=== PATIENT | male | born 1970 | race Hispanic/Latino ===

== ENCOUNTER 2018-03-16 07:57 | Inpatient (IN) | payer OTHER ==
[2018-03-16] MEDS ORDERED: Morphine 4 MG/ML VIAL ONE (08:17)
[2018-03-16 08:23] LABS: #Basophils 0.1 thou/uL (0.0-0.2); #Eosinphils 0.9 thou/uL (0.0-0.7); #Lymphocytes 2.6 thou/uL (1.20-3.40); #Monocytes 0.7 thou/uL (0.11-0.59); #Neutrophils 8.1 thou/uL (1.40-6.50); %Basophils 0.6 % (0.0-1.0); %Eosinophils 7.3 % (0.0-10.0); %Lymphocytes 20.8 % (21.0-51.0); %Monocytes 5.9 % (0.0-10.0); %Neutrophils 65.4 % (42.0-75.0); Hemoglobin 11.6 g/dL (14.0-18.0); Mean Corpuscular HGB CONC 32.2 g/dL (32.0-36.0); Mean Corpuscular Hemoglobin 25.4 pg (27.0-31.0); Mean Platelet Volume 6.6 fL (7.4-10.4); Platelet Count 442 thou/uL (130-400); RBC Distribution Width 13.9 % (11.5-14.5); Red Blood Cell (RBC) Count 4.56 mill/uL (4.70-6.10); White Blood Cell (WBC) Count 12.3 thou/uL (4.8-10.8)
[2018-03-16 08:45] LABS: ALT (SGPT) 27 U/L (8-55); AST (SGOT) 26 U/L (5-34); Alkaline Phosphatase 79 U/L (40-150); Anion Gap 15 mmol/L (10-20); BUN (Urea Nitrogen) 17 mg/dL (8.9-20.6); Bilirubin, Total 0.3 mg/dL (0.2-1.2); CK (CPK) 382 U/L (30-200); Calc. Creatinine Clearance 0 mL/min (70-130); Calcium 9.3 mg/dL (7.8-10.44); Carbon Dioxide 25 mmol/L (22-29); Chloride 102 mmol/L (98-107); Estimated GFR-MDRD 77; Glucose 161 mg/dL (70-105); Lipase 22 U/L (8-78); Potassium 3.9 mmol/L (3.5-5.1); Sodium 138 mmol/L (136-145)
[2018-03-16 08:47] LABS: CKMB 4.7 ng/mL (0-6.6); Troponin I Less than 0.010 ng/mL (< 0.028)
[2018-03-16] MEDS ORDERED: ISOVUE-370 76%-LOCM 1 ML ONE (09:40)
[2018-03-16] MEDS ORDERED: Sodium Chloride 0.9% 100 ML ONE (09:41)
[2018-03-16] MEDS ORDERED: cefTRIAXone\\ROCEPHIN 2 GM VIAL ONE (09:41)
--- NOTE | 2018-03-16 10:14 | RAD ---
SINGLE VIEW CHEST: Date: 03/16/18 COMPARISON: None. HISTORY: Left-sided chest pain and difficulty breathing. FINDINGS: Single view of the chest shows a normal sized cardiomediastinal silhouette. There is no evidence of c onsolidation, mass, or pleural effusion. The bones are unremarkable. IMPRESSION: No evidence of acute cardiopulmonary disease. POS: [facility]
[2018-03-16] MEDS ORDERED: Azithromycin 500 MG VIAL ONE (10:42)
--- NOTE | 2018-03-16 10:51 | CT ---
CONTRAST ENHANCED CTA CHEST: Date: 03/16/18 HISTORY: 47-year-old male with history of chest pain, difficulty breathing. TECHNIQUE: Contrast enhanced CTA of the chest is performed. 2D and 3D reconstructed images performed on an [employer] 3D workstation. FINDINGS: CTA chest demonstrates no evidence of filling defects seen in the pulmonary arteries to suggest pulmo nary emboli. The aortic arch is unremarkable. A small left-sided pleural effusion is seen. There is a cavitary lesion in the left lower lobe measuring 3.2 x 4.3 cm. This may represent a cavita km left lower lobe mass versus necrotic area of pneumonia. Follow-up films to resolution recommended . Correlate with clinical exam. Small hiatal hernia is also present. IMPRESSION: Cavitating lesion left lower lobe with small left-sided pleural effusion. POS: [facility]
[2018-03-16] MEDS ORDERED: Nitroglycerin 0.4 MG TAB (25 Tab Bottle) PO PRN (11:34)
[2018-03-16] MEDS ORDERED: Ondansetron HCl/PF 4 MG/2 ML Vial IVP PRN (11:34)
[2018-03-16] MEDS ORDERED: Ondansetron ODT 4 MG TAB PO PRN (11:34)
[2018-03-16] MEDS ORDERED: Senokot 8.6 MG TAB PO PRN (11:34)
[2018-03-16] MEDS ORDERED: hydrALAZINE 20 MG/ML VIAL SLOW IVP PRN ×2 (11:39→12:01)
[2018-03-16 11:42] LABS: Troponin I Less than 0.010 ng/mL (< 0.028)
[2018-03-16] MEDS ORDERED: Vancomycin HCl 1 GM in Premix Bag 1 BAG IVPB SCH (11:45)
[2018-03-16] MEDS ORDERED: Dextrose 50% Abboject 50 ML SYRINGE SLOW IVP PRN (11:58)
[2018-03-16] MEDS ORDERED: Dextrose 5% in Water 1,000 ML IV PRN (11:58)
--- NOTE | 2018-03-16 12:48 | HP ---
DATE OF ADMISSION: 03/16/2018 PRIMARY CARE PHYSICIAN: Dr. Shahab Giles in [place]. CHIEF COMPLAINT: Chest discomfort this a.m. HISTORY OF PRESENT ILLNESS: Patient is a 47-year-old male with diabetes mellitus type 2, hypertension, hyperlipidemia, and obesity, who presented to the emergency room with sudden onset of left-sided chest pain along with difficulty breathing that started this morning. He was driving to [place] from [place]. The chest discomfort was sharp, worse on deep breathing and moderate to severe in intensity. He was diaphoretic; however, denies any nausea, vomiting, lightheadedness, dizziness, syncope, or palpitations. He has a dry cough on and off over the last 4 weeks. He denies any fever, chills, night sweats or recent travel. In the emergency room, initial vital signs showed temperature 98.1, respirations 26, pulse rate of 111 with a blood pressure 152/109 with O2 saturation 97% on room air. His WBC count was 12.3 with normal neutrophils. Troponins was negative. Chest x-ray was negative for infiltrate. CT angiogram of the chest showed small left-sided pleural effusion with a cavitary lesion in the left lower lobe measuring 3.2 x 4.3 cm. He received ceftriaxone, azithromycin, morphine with IV fluids in the emergency room after blood cultures. PAST MEDICAL HISTORY: 1. Hypertension. 2. Diabetes mellitus type 2. 3. Hyperlipidemia. PAST SURGICAL HISTORY: Reviewed with the patient and none. ALLERGIES: No known drug allergies. CURRENT HOME MEDICATIONS: Metformin, lovastatin, lisinopril, hydrochlorothiazide, glimepiride, and pioglitazone. Exact dosages to be confirmed. SOCIAL HISTORY: Patient denies any history of smoking, alcohol or drug use. He currently lives at home with his family. He has been in [place] in . He has also traveled to [place]. He denies any travel to [place] or [place]. FAMILY HISTORY: Positive for diabetes. Grandmother on mother's side with breast cancer. Grandmother on father's side with throat cancer. She was a smoker as well. REVIEW OF SYSTEMS: The following complete review of systems was negative, unless otherwise mentioned in the HPI or below: Constitutional: Weight loss or gain, ability to conduct usual activities. Skin: Rash, itching. Eyes: Double vision, pain. ENT/Mouth: Nose bleeding, neck stiffness, pain, tenderness. Cardiovascular: Palpitations, dyspnea on exertion, orthopnea. Respiratory: Shortness of breath, wheezing, cough, hemoptysis, fever or night sweats. Gastrointestinal: Poor appetite, abdominal pain, heartburn, nausea, vomiting, constipation, or diarrhea. Genitourinary: Urgency, frequency, dysuria, nocturia. Musculoskeletal: Pain, swelling. Neurologic/Psychiatric: Anxiety, depression. Allergy/Immunologic: Skin rash, bleeding tendency. PHYSICAL EXAMINATION: VITAL SIGNS: As discussed above. GENERAL: A 47-year-old male in no apparent distress. Pain control with morphine. HEENT: Head is atraumatic, normocephalic. Sclerae are anicteric. Moist mucous membrane, no oral lesion. NECK: Supple, no JVD appreciated. No carotid bruit. LUNGS: Showed scattered rales on the left base without significant wheezing, rhonchi, or accessory muscle use. HEART: S1 and S2 present. Tachycardic, no murmur, rubs, or gallops appreciated. ABDOMEN: Soft, obese, bowel sounds present. EXTREMITIES: No edema or calf tenderness. NEUROLOGIC: Grossly nonfocal, moves all four extremities. PSYCHIATRY: Alert, awake, oriented x3. SKIN: Warm and dry. LYMPH NODES: No palpable lymph nodes in the neck. PERIPHERAL VASCULAR: Radial pulses palpable bilaterally. MUSCULOSKELETAL: No joint swelling or tenderness. LABORATORY AND X-RAY FINDINGS: As discussed above. Hemoglobin 11.6, hematocrit 36, BUN 17, creatinine 1.04. Troponins x2 have been negative. CRP was 3.69. Lactic acid was 1.6. CT angiogram of the chest by my review as discussed above. Chest x-ray by my review as discussed above. EKG by my review showed sinus tachycardia without significant ST-T wave changes. IMPRESSION: 1. Atypical chest pain, which is pleuritic in nature. Probably secondary to necrotizing pneumonia versus lung mass. Malignancy is also a possibility. 2. Diabetes mellitus type 2. 3. Hypertension. 4. Hyperlipidemia. 5. Elevated inflammatory markers. 6. Chronic kidney disease stage 2. 7. Thrombocytosis, probably secondary to #1. 8. Anemia, probably chronic. PLAN: The patient will be monitored on the telemetry unit due to chest discomfort. We will get serial troponins. Echocardiogram will be done. We will start him on vancomycin and meropenem. We will add low dose aspirin. Insulin sliding scale. We will resume home medications once confirmed. We will consult Pulmonary, Dr. Pearce. We will start him on diabetic diet. Plan of care was discussed with the patient in detail. He stated understanding. AFSANEHD
[2018-03-16] MEDS ORDERED: Meropenem 1 GM in Sodium Chloride 0.9% 100 ML IVPB SCH (13:00)
[2018-03-16] MEDS ORDERED: Vancomycin HCl 1.5 GM in Sodium Chloride 0.9% 250 ML 300 ML IVPB SCH (13:00)
[2018-03-16 14:28] VITALS: BMI 40.6
[2018-03-16 14:35] LABS: Troponin I Less than 0.010 ng/mL (< 0.028)
[2018-03-16] MEDS: Sodium Chloride 0.9% 1,000 ML IV SCH (14:45)
[2018-03-16] MEDS: Ketorolac Tromethamine 30 MG/ML VIAL IVP PRN ×2 (15:56→21:43)
[2018-03-16] MEDS: Acetaminophen 325 MG TAB PO PRN (16:02)
[2018-03-16] MEDS: HYDROcodone/Acetaminophen 5/325 mg Tablet PO PRN (19:41)
[2018-03-16] MEDS: Docusate 100 MG CAP PO SCH (19:55)
[2018-03-16] MEDS: Lisinopril 10 MG TAB PO SCH (19:55)
[2018-03-16] MEDS: Famotidine 20 MG TAB PO SCH (19:56)
--- NOTE | 2018-03-16 20:51 | CON ---
DATE OF CONSULTATION: 03/16/2018 SERVICE: Pulmonary Medicine. REASON FOR CONSULTATION: Abnormal CT finding. HISTORY OF PRESENT ILLNESS: The patient is a 47-year-old white male. He was driving his daughter from [place] to [place]. He dropped her off because she is starting as a student in [employer]. He stayed there last night. This morning, he was going to drive from [place] to [place]. When he was on the road, he had an onset of abrupt sharp pleuritic chest discomfort in the left chest wall. It was severe enough that he saw emergency services immediately. He went to the Emergency Department at [place]. He underwent a CT PE protocol. He is negative for PE, but did demonstrate an infiltrate. He started on some antibiotics. He continues to have pleuritic chest discomfort. He is worse in the supine position. He denies any current fevers, chills, nausea, vomiting or shortness of breath. He did not have any hot, red, swollen joints, rashes, or arthralgias. He denies having any hemoptysis, recent weight changes. He has been coughing on and off for the past 2 weeks. That being said, he did not think much of it. He never felt sick this entire period of time until the onset of that difficult pain. PAST MEDICAL HISTORY: 1. Type 2 diabetes mellitus. 2. Hypertension. 3. Dyslipidemia. PAST SURGICAL HISTORY: None. ALLERGIES: No known drug allergies. MEDICATIONS: List of his inpatient medications were reviewed. No specific updates were made at this time. SOCIAL HISTORY: Negative for alcohol, tobacco or illicit drug use. He has no exposure to chemicals, dust asbestos or tuberculosis. FAMILY HISTORY: Noncontributory. REVIEW OF SYSTEMS: General, head, ears, eyes, nose, throat, cardiovascular, respiratory, GI, , musculoskeletal, neurologic, and skin is negative except as mentioned in the HPI. PHYSICAL EXAMINATION: VITAL SIGNS: Afebrile currently. His T-max is 102.2. Pulse 123, blood pressure 132/70, respirations 18, saturation 93% on room air. GENERAL: The patient is awake, alert, no apparent distress. LUNGS: Decent air entry bilaterally. There is no prolonged expiratory phase. He has asymmetric crackles on the left. HEART: Normal rate, regular. ABDOMEN: Soft, nontender, nondistended. Bowel sounds are positive. MUSCULOSKELETAL: No cyanosis or clubbing. There is no pitting in the bilateral lower extremities. NEUROLOGIC: Grossly nonfocal. LABORATORY DATA: WBC 12.3, hemoglobin 11.6, platelets 442,000. Lactate 1.6, glucose 219. CRP is elevated. Cardiac enzymes are negative x3. Basic metabolic profile and liver function studies are essentially unremarkable except for CK that is slightly elevated at 382. IMAGIN. Chest x-ray demonstrates low lung volumes accentuate interstitial markings. I honestly can see any acute cardiopulmonary process. In retrospect, there may be an infiltrate just on top of the dome of the left diaphragm. 2. CT of the chest demonstrates no evidence of acute pulmonary embolism. In the superior segment of the left lower lobe, there is a dense infiltrate that takes on a cavitary appearance. There is also scattered tree-in-bud opacifications throughout the entirety of the superior segment of the left lower lobe. ASSESSMENT: 1. Community-acquired pneumonia, suspected. 2. Obstructive sleep apnea, suspected. 3. Abnormal CT of the chest, DISCUSSION AND PLAN: My suspicion is that we are dealing with his straightforward community-acquired pneumonia. As such, I will put him on a 2- week course of Levaquin. I am going to extend the course because there may be an early abscess underneath this lesion. It will be imperative for him to have a repeat CT of the chest in roughly 6 weeks to verify the infiltrate resolves. When he leaves this hospital, he will need to leave with a copy of the CT from this hospital stay. He understands that we have not excluded the possibility of an underlying growth and/or cancer process. I will repeat a chest x-ray tomorrow morning. If the pleural effusion is not significantly changed, and his white blood cell count and fever profile have dramatically improved, he can be considered for discharge from the hospital. If all of my criteria are not met, he will need to stay for an additional day or two. After 4-5 days of the Levaquin, we can certainly finish off a course of antibiotics with Augmentin if it would be easier for the patient. Pulmonary Critical Care will continue to follow while he remains in this location. 70 minutes have been devoted to this patient in various activities. I personally reviewed all imaging studies and laboratory data noted within this document. For fifty percent of this time, I was interacting with the patient at the bedside or coordinating care with the care team. For the remainder of the time I was immediately available to the patient in the hospital unit. KINS[place]Y
[2018-03-17] MEDS: Ketorolac Tromethamine 30 MG/ML VIAL IVP PRN (03:56)
[2018-03-17 06:10] LABS: Anion Gap 15 mmol/L (10-20); BUN (Urea Nitrogen) 16 mg/dL (8.9-20.6); Calc. Creatinine Clearance 238 mL/min (70-130); Calcium 8.5 mg/dL (7.8-10.44); Carbon Dioxide 20 mmol/L (22-29); Cardiac Risk 3.1 (Less than 4.5); Chloride 102 mmol/L (98-107); Cholesterol 93 mg/dl (< 200 Desired); Estimated GFR-MDRD Greater than 90; Glucose 167 mg/dL (70-105); HDL Cholesterol 30 mg/dL (>60 Neg Risk); LDL Cholesterol, Calculated 53 mg/dL; Magnesium 1.2 mg/dL (1.6-2.6); Potassium 3.9 mmol/L (3.5-5.1); Sodium 133 mmol/L (136-145); Triglycerides 49 mg/dL (Less than 150)
[2018-03-17 06:53] LABS: Band 11 % (5-11); Eosinophils 2 % (0-10); Hemoglobin 10.6 g/dL (14.0-18.0); Lymphocytes 8 % (21-51); MDiff Complete? YES; Mean Corpuscular Hemoglobin 25.8 pg (27.0-31.0); Mean Corpuscular Volume 78.1 fL (78.0-98.0); Mean Platelet Volume 6.8 fL (7.4-10.4); Monocytes 6 % (0-10); Neutrophil 73 % (42-75); Platelet Count 320 thou/uL (130-400); Red Blood Cell (RBC) Count 4.12 mill/uL (4.70-6.10)
[2018-03-17] MEDS ORDERED: Magnesium Sulfate 4 GM in Sodium Chloride 0.9% 250 ML 250 ML IVPB SCH (08:00)
[2018-03-17] MEDS ORDERED: Aspirin 325 MG TAB PO SCH (09:00)
[2018-03-17] MEDS: Docusate 100 MG CAP PO SCH ×2 (09:09→20:46)
[2018-03-17] MEDS: Famotidine 20 MG TAB PO SCH (09:09)
[2018-03-17] MEDS: Lisinopril 10 MG TAB PO SCH ×2 (09:09→20:46)
[2018-03-17] MEDS: Aspirin 81 mg Enteric Coated Tablet PO SCH (09:10)
[2018-03-17] MEDS: HYDROcodone/Acetaminophen 5/325 mg Tablet PO PRN ×2 (09:51→14:44)
--- NOTE | 2018-03-17 12:18 | RAD ---
2 VIEW CHEST: Date: 03/17/18 HISTORY: Chest pain. FINDINGS: PA and lateral views of chest obtained. Comparison made to chest CT from 03/16/18. Two views of the chest demonstrate interval increasing left-sided pleural effusion. The area of necro sis and consolidation of the left lung base appears to have increased in size. The right lung remains well aerated. IMPRESSION: Area of increasing opacification in the left lower lobe with increasing left-sided pleural effusion. POS: [facility]
[2018-03-17] MEDS: Sodium Chloride 0.9% 1,000 ML IV SCH (14:46)
[2018-03-17 15:23] LABS: Legionella Urinary Ag Negative (Negative); Strep pneumo Urine Ag NEGATIVE (NEGATIVE)
[2018-03-17] MEDS ORDERED: Lidocaine 1% (PF) 30 ML VIAL ONE (15:51)
[2018-03-17 16:48] LABS: BF Color Yellow; Body Fluid Source THORACENTESIS FLD; Clarity Cloudy/Turbid (Clear)
[2018-03-17 16:49] LABS: RBC Count-Automated 30000 /cumm; Tube # EDTA; WBC/NonHematic-Auto 16400 /cumm
[2018-03-17 16:56] LABS: Pleural Fluid, Protein 4.8 g/dL
[2018-03-17 17:16] LABS: BF Segmented Neutrophils 86 %; Cell Count Non Hematic 6 %; Lymphocytes 8 %
--- NOTE | 2018-03-17 17:31 | RAD ---
CHEST TWO VIEWS: History: Thoracentesis. Comparison: Earlier exam same date. FINDINGS: Cardiac silhouette is unremarkable. Pulmonary vasculature remains engorged. Left basilar infiltrate a nd probable pleural fluid are again demonstrated. No evidence of pneumothorax. visitor service assistant leads overlie the chest. IMPRESSION: Stable radiographic appearance of the chest. No evidence of pneumothorax. POS: [facility]
[2018-03-17] MEDS ORDERED: Vancomycin HCl 1.5 GM in Sodium Chloride 0.9% 250 ML 300 ML IVPB SCH ×2 (18:00→20:00)
[2018-03-17] MEDS: Insulin Regular 300 UNITS/3 ML VIAL SC PRN (18:12)
[2018-03-17] MEDS: Piperacillin/Tazobactam 3.375 GM in Sodium Chloride 0.9% 100 ML IVPB SCH ×2 (18:12→23:18)
--- NOTE | 2018-03-17 18:15 | PRG ---
DATE OF SERVICE: 03/17/2018 SERVICE: Pulmonary Medicine. INTERVAL HISTORY: The patient is doing poorly from a respiratory standpoint. He is having increasin g pleuritic chest discomfort. Whenever he gets up and moves around, he has pleuritic chest pain. It seems improve once he settles down for a period of time. He is having a hard time lying down. Othe rwise, there has been no interval change to his condition. PHYSICAL EXAMINATION: VITAL SIGNS: Afebrile, pulse 112, blood pressure 126/79, respirations 20, saturation 96% on room air . GENERAL: The patient is awake and alert, in no apparent distress. LUNGS: Decent air entry on the right. There is decreased air entry at the left base. There is rhon chi and crackles present. No wheezing. HEART: Normal rate, regular. ABDOMEN: Soft, nontender, nondistended. Bowel sounds are positive. MUSCULOSKELETAL: No cyanosis or clubbing. No pitting in the bilateral lower extremities. NEUROLOGIC: Grossly nonfocal. LABORATORY DATA: WBC 17.0, hemoglobin 10.6, platelets 320,000. Basic metabolic profile is unremarka ble otherwise. Magnesium 1.2. Blood sugar ranges from 170-266. Strep and legionella urine antigens are unremarkable. Blood cultures x2 are negative. IMAGING: Chest x-ray demonstrates increasing pleural effusion and infiltrate in the left base. ASSESSMENT: 1. Community-acquired pneumonia. 2. Pleural effusion. 3. Obstructive sleep apnea, suspected. 4. Type 2 diabetes mellitus. DISCUSSION AND PLAN: I will replace the magnesium. We are going to proceed with a thoracentesis pradip t can define the characteristics of this increasing fluid collection. My suspicion is an early infec tious fluid. I am going to add Zosyn in order to broaden out anaerobic coverage. Pulmonary Critical Care will continue to follow along. The patient will require staying in the hospital for at least i n another 2 midnights. Assuming he does not require surgical procedure in the coming days.
[2018-03-17] MEDS: Vancomycin HCl 1.5 GM in Sodium Chloride 0.9% 250 ML 300 ML IVPB SCH (20:42)
[2018-03-17] MEDS: Simvastatin 5 MG TAB PO SCH (20:46)
--- NOTE | 2018-03-17 23:00 | PDOC.PN ---
- Subjective Encounter Start Date: 03/17/18 Encounter Start Time: 18:00 Patient seen and examined for Pneumonia/Sepsis. Pleuritic pain +. No CP. s/p thoracentesis. No overnight events - Objective Resuscitation Status: Resuscitation Status FULL:Full Resuscitation MAR Reviewed: Yes Vital Signs & Weight: Vital Signs (12 hours) Temp Pulse Resp BP BP Pulse Ox 03/17/18 20:46 128/78 03/17/18 20:20 98 F 135 H 18 128/78 93 L 03/17/18 16:40 98.6 F 121 H 20 134/66 91 L Weight Weight 333 lb 6.4 oz I&O: 03/16/18 03/17/18 03/18/18 06:59 06:59 06:59 Intake Total 705 Output Total 100 Balance 605 Result Diagrams: 03/18/18 04:41 03/18/18 04:41 Additional Labs: Accuchecks 03/17/18 03/17/18 03/17/18 20:56 16:53 10:57 POC Glucose 185 H 231 H 173 H 03/17/18 05:35 POC Glucose 170 H EKG Reviewed by me: Yes (Tele SR) Phys Exam - Physical Examination Constitutional: NAD Neck: no JVD Respiratory: no wheezing, no rhonchi Rt sided rales Cardiovascular: RRR, no rub Gastrointestinal: soft, non-tender, positive bowel sounds Musculoskeletal: no edema Neurological: moves all 4 limbs Dx/Plan - Plan DVT proph w/SCDs IMPRESSION: 1. Sepsis for Pneumonia ?Pneumococcus with Parapneumonic effusion s/p thoracentesis 2. Pleuritic chest pain - trop neg, Echo - normal EF 2. Diabetes mellitus type 2. 3. Hypertension. 4. Hyperlipidemia. 5. Hypomagnesemia. 6. Chronic kidney disease stage 2. 7. Thrombocytosis, probably secondary to #1. 8. Anemia, probably chronic. PLAN: Cont IV Vancomycin/Levaquin/Zosyn Replace Magnesium Await Pleural fluid culture AM labs Cont to monitor AM labs Laboratory Tests 03/17/18 04:48 Magnesium 1.2 L Review of Systems - Review of Systems Constitutional: negative: fever, chills, sweats, weakness, malaise, other Gastrointestinal: negative: Nausea, Vomiting, Abdominal Pain, Diarrhea, Constipation, Melena, Hematochezia, Other - Medications/Allergies Allergies/Adverse Reactions: Allergies Allergy/AdvReac Type Severity Reaction Status Date / Time No Known Allergies Allergy Unverified 03/16/18 12:05 Medications: Current Medications Acetaminophen (Tylenol) 650 mg PO Q4H PRN PRN Reason: Headache/Fever or Pain Last Admin: 03/16/18 16:02 Dose: 650 mg Hydrocodone Bitart/Acetaminophen ([place] 5/325) 1 tab PO Q4H PRN PRN Reason: Moderate Pain (4-6) Last Admin: 03/17/18 14:44 Dose: 1 tab Aspirin (Ecotrin) 81 mg PO DAILY [facility] Last Admin: 03/17/18 09:10 Dose: 81 mg Dextrose/Water (Dextrose 50%) 25 gm SLOW IVP PRN PRN PRN Reason: Hypoglycemia Docusate Sodium (Colace) 100 mg PO BID [facility] Last Admin: 03/17/18 20:46 Dose: 100 mg Glimepiride (Amaryl) 1 mg [facility] Glucagon (Glucagon) 1 mg IM PRN PRN PRN Reason: Hypoglycemia Hydralazine HCl (Apresoline) 10 mg SLOW IVP Q4H PRN PRN Reason: SBP Greater Than 180 Sodium Chloride (Normal Saline 0.9%) 1,000 mls @ 50 mls/hr IV .Q20H [facility] Last Admin: 03/17/18 14:46 Dose: 1,000 mls Dextrose/Water (D5w) 1,000 mls @ 0 mls/hr IV .Q0M PRN PRN Reason: Hypoglycemia Levofloxacin 750 mg/ Device 150 mls @ 100 mls/hr IVPB Q24HR [facility] Last Admin: 03/17/18 14:44 Dose: 150 mls Piperacillin Sod/Tazobactam (Sod 3.375 gm/ Sodium Chloride) 100 mls @ 200 mls/ hr IVPB Q6HR [facility] Last Admin: 03/17/18 18:12 Dose: 100 mls Vancomycin HCl 1.5 gm/ Sodium (Chloride) 300 mls @ 200 mls/hr IVPB 0400,1200, 2000 [facility] Last Admin: 03/17/18 20:42 Dose: 300 mls Insulin Human Regular (Humulin R) 0 units SC .MILD SLIDING SCALE PRN PRN Reason: Mild Correctional Scale Last Admin: 03/17/18 18:12 Dose: 3 unit Ketorolac Tromethamine (Toradol) 15 mg IVP Q6H PRN PRN Reason: Severe Pain (7-10) Stop: 03/21/18 15:39 Last Admin: 03/17/18 03:56 Dose: 15 mg Lisinopril (Zestril) 10 mg PO BID [facility] Last Admin: 03/17/18 20:46 Dose: 10 mg Miscellaneous Medication (Pharmacy To Dose) 1 each IVPB PRN PRN PRN Reason: Pharmacy to dose Morphine Sulfate (Morphine) 2 mg SLOW IVP Q4H PRN PRN Reason: Pain Stop: 03/18/18 12:02 Last Admin: 03/17/18 20:15 Dose: 2 mg Nitroglycerin (Nitrostat) 0.4 mg PO Q5MIN PRN PRN Reason: Chest Pain Ondansetron HCl (Zofran Odt) 4 mg PO Q6H PRN PRN Reason: Nausea/Vomiting Ondansetron HCl (Zofran) 4 mg IVP Q6H PRN PRN Reason: Nausea/Vomiting Pantoprazole Sodium (Protonix) 40 mg PO DAILY [facility] Pioglitazone HCl (Actos) 15 mg PO DAILY [facility] Senna (Senokot) 2 tab PO HSPRN PRN PRN Reason: Constipation Simvastatin (Zocor) 10 mg PO HS [facility] Last Admin: 03/17/18 20:46 Dose: 10 mg Sodium Chloride (Flush - Normal Saline) 10 ml IVF Q12HR [facility] Last Admin: 03/17/18 20:21 Dose: 10 ml Sodium Chloride (Flush - Normal Saline) 10 ml IVF PRN PRN PRN Reason: Saline Flush
--- NOTE | 2018-03-17 23:40 | OP ---
DATE OF PROCEDURE: 03/17/2018 SERVICE: Pulmonary Medicine. PROCEDURE: Left-sided pleural drainage with catheter insertion under ultrasound guidance. CONSENT: The risks and benefits of the procedure were discussed with the patient immediately prior t o initiating. All questions were answered and alternative options explained. STAFF PHYSICIAN: Vin Pearce MD MEDICATIONS USED: Lidocaine 1% without epinephrine, total quantity 10 mL. PREOPERATIVE DIAGNOSES: 1. Community-acquired pneumonia. 2. Pleural effusion. POSTOPERATIVE DIAGNOSES: 1. Community-acquired pneumonia. 2. Pleural effusion. DESCRIPTION OF PROCEDURE: Timeout was performed by the procedure team and patient. The patient was positively identified using name and date of . The procedure site was marked. Vital sign monit oring was accomplished by noninvasive hemodynamic monitoring, pulse oximetry, and telemetry. In the seated position, the left posterior hemithorax was examined using ultrasound probe. The diaphragm an d pleural fluid were easily identified. The skin was prepped and draped in sterile fashion and anest hetized with 1% lidocaine without epinephrine. A finder needle was inserted in the pleural space wit h return of cloudy dayana pleural fluid. A pleural drainage catheter was then inserted in the same lo cation and total quantity of 800 mL of pleural fluid was withdrawn by syringe pump technique. [facility]. Evacuation of the fluid was terminated because the fluid stopped coming. At the end of the procedure, estimated pleural pressures, measured by manometry, was -16 cm of pleura l fluid. The intact catheter was withdrawn on exhalation and a sterile dressing was applied. The pa tient had stable vitals throughout the entire procedure. ESTIMATED BLOOD LOSS: Less than 1 mL. COMPLICATIONS: None.
[2018-03-18] MEDS: Ketorolac Tromethamine 30 MG/ML VIAL IVP PRN ×3 (02:08→18:01)
[2018-03-18] MEDS: Vancomycin HCl 1.5 GM in Sodium Chloride 0.9% 250 ML 300 ML IVPB SCH ×2 (04:11→13:17)
[2018-03-18 06:25] LABS: Anion Gap 14 mmol/L (10-20); BUN (Urea Nitrogen) 12 mg/dL (8.9-20.6); Calc. Creatinine Clearance 235 mL/min (70-130); Calcium 8.7 mg/dL (7.8-10.44); Carbon Dioxide 21 mmol/L (22-29); Chloride 102 mmol/L (98-107); Estimated GFR-MDRD Greater than 90; Glucose 194 mg/dL (70-105); Magnesium 1.7 mg/dL (1.6-2.6); Potassium 4.1 mmol/L (3.5-5.1); Sodium 133 mmol/L (136-145)
[2018-03-18 06:44] LABS: Hemoglobin 10.4 g/dL (14.0-18.0); Mean Corpuscular HGB CONC 32.4 g/dL (32.0-36.0); Mean Corpuscular Hemoglobin 25.8 pg (27.0-31.0); Mean Corpuscular Volume 79.6 fL (78.0-98.0); Mean Platelet Volume 7.4 fL (7.4-10.4); Platelet Count 316 thou/uL (130-400); RBC Distribution Width 14.2 % (11.5-14.5); Red Blood Cell (RBC) Count 4.05 mill/uL (4.70-6.10); White Blood Cell (WBC) Count 17.1 thou/uL (4.8-10.8)
[2018-03-18 07:01] LABS: Band 3 % (5-11); Eosinophils 1 % (0-10); Lymphocytes 5 % (21-51); MDiff Complete? YES; Monocytes 2 % (0-10); Neutrophil 89 % (42-75)
--- NOTE | 2018-03-18 09:16 | RAD ---
TWO VIEWS CHEST: HISTORY: Followup pleural effusion. FINDINGS: PA and lateral views of the chest were obtained on 03/18/18. Comparison is made to previous exam from 03/17/18. Two views chest demonstrate a moderate-size left-sided pleural effusion. Areas of airspace opacity remain in the left lung base. The degree of opacification of the left lung base is unchanged since the previous exam. Mild pulmonary vascular congestion is seen. No evidence of effusions seen. IMPRESSION: Left-sided pleural effusion and areas of left lower lobe consolidation. No other significant abnorma lity is seen. POS: [facility]
--- NOTE | 2018-03-18 11:09 | CT ---
NONCONTRAST ENHANCED CT CHEST: Date: 03/18/18 HISTORY: Pneumonia COMPARISON: Comparison made to CTA chest from 03/16/18. FINDINGS: A noncontrast enhanced CT of the chest demonstrates interval development of moderate size left-sided pleural effusion. There are extensive increasing consolidations seen in the majority of the left lowe r lobe. This has significantly decreased in extent when compared to the CTA from 2 days earlier. Some area of increased density also seen along the posterior aspect of the left upper lobe seen on image #20. This may represent small posterior left upper lobe area of pneumonia versus fluid in the major f issure, which is now trapped in this area. The rest of the lungs are unremarkable. IMPRESSION: Increasing left-sided pleural effusion with extensively increasing left lower lobe pneumonia. POS: [facility]
[2018-03-18] MEDS: Piperacillin/Tazobactam 3.375 GM in Sodium Chloride 0.9% 100 ML IVPB SCH ×4 (11:17→23:10)
[2018-03-18] MEDS: Pioglitazone HCl 15 MG TAB PO SCH (11:17)
[2018-03-18] MEDS: Lisinopril 10 MG TAB PO SCH ×2 (11:17→21:12)
[2018-03-18] MEDS: Aspirin 81 mg Enteric Coated Tablet PO SCH (11:18)
[2018-03-18] MEDS: Docusate 100 MG CAP PO SCH ×2 (11:18→21:12)
[2018-03-18] MEDS: Glimepiride 1 MG TAB PO SCH (11:31)
[2018-03-18] MEDS: Insulin Regular 300 UNITS/3 ML VIAL SC PRN (11:32)
[2018-03-18] MEDS: Sodium Chloride 0.9% 1,000 ML IV SCH ×2 (13:23→23:19)
[2018-03-18] MEDS: HYDROcodone/Acetaminophen 5/325 mg Tablet PO PRN ×2 (14:10→21:11)
--- NOTE | 2018-03-18 16:58 | PRG ---
DATE OF SERVICE: 03/18/2018 SERVICE: Pulmonary Medicine. INTERVAL HISTORY: The patient is doing a little bit better from a respiratory standpoint. He is having a little less pleuritic chest discomfort. That being said, clearly he had not turn a corner yet. He denies any nausea, vomiting, fevers or chills. Otherwise, there has been no interval change to his condition. His band count is dropping. His white blood cell count is also stable. OBJECTIVE: VITAL SIGNS: Afebrile currently. Pulse 113, blood pressure 126/68, respirations 18, saturation 95% on room air. GENERAL: The patient is awake and alert, no apparent distress. LUNGS: Decent air entry. The left base has crackles. Dullness to percussion is present. HEART: Tachycardic. Regular. ABDOMEN: Soft, nontender, nondistended. Bowel sounds are positive. MUSCULOSKELETAL: No cyanosis or clubbing. There is no pitting in the bilateral lower extremities. NEUROLOGIC: Grossly nonfocal. LABORATORY DATA: WBC 17.1 and stable, hemoglobin 10.4, platelets 316,000. Basic metabolic profile is essentially unremarkable. Magnesium is 1.7. Blood cultures x2, body fluid culture, AFB smear and culture are all negative to date. IMAGING: Chest x-ray from yesterday and today demonstrates possible pleural effusion, but truth be told, the infiltrate is a dense, I really cannot see it, well demarcated. CT of the chest demonstrates dense consolidation in the left lower lobe. There is a left-sided pleural effusion, which has recurred once again with areas that appeared to have some loculation versus abscess in the left lower lobe. ASSESSMENT: 1. Community-acquired pneumonia. 2. Pleural effusion, suspect complicated parapneumonic effusion. 3. Obstructive sleep apnea, suspected. 4. Type 2 diabetes mellitus. DISCUSSION AND PLAN: I will make the patient n.p.o. after midnight tonight just in case we need to send him for surgery over the next couple of days. This is either an uncomplicated parapneumonic effusion which will improve or complicated effusion that was set up into loculations and never get better. If he clears his sepsis profile, I can give him more time. If on the other hand, he does not a white blood cell count starts to trend upward, we will call Thoracic Surgery for definitive treatment of this pleural space. He needs to stay in the hospital. K[place]LEY
[2018-03-18 19:41] LABS: Vancomycin, Trough 22.6 ug/mL
[2018-03-18] MEDS: Vancomycin HCl 1.25 GM in Sodium Chloride 0.9% 250 ML 250 ML IVPB SCH (21:10)
[2018-03-18] MEDS: Simvastatin 5 MG TAB PO SCH (21:21)
--- NOTE | 2018-03-18 22:35 | PDOC.PN ---
- Subjective Encounter Start Date: 03/18/18 Encounter Start Time: 18:00 Patient seen and examined for Sepsis. Pain controlled. No new complaints. No overnight events - Objective Resuscitation Status: Resuscitation Status FULL:Full Resuscitation MAR Reviewed: Yes Vital Signs & Weight: Vital Signs (12 hours) Temp Pulse Resp BP Pulse Ox 03/18/18 21:00 98.9 F 121 H 18 118/58 L 93 L 03/18/18 13:32 95 03/18/18 13:20 98.9 F 113 H 18 126/68 92 L 03/18/18 11:13 99.6 F 120 H 18 131/60 93 L Weight Weight 333 lb 6.4 oz I&O: 03/17/18 03/18/18 03/19/18 06:59 06:59 06:59 Intake Total 705 2227 Output Total 100 400 Balance 605 1827 Result Diagrams: 03/19/18 04:16 03/19/18 04:16 Additional Labs: Accuchecks 03/18/18 03/18/18 03/18/18 20:23 16:48 11:01 POC Glucose 195 H 123 H 280 H 03/18/18 05:36 POC Glucose 186 H Laboratory Tests 03/18/18 04:41 BUN 12 Creatinine 0.84 EKG Reviewed by me: Yes (Tele SR) Phys Exam - Physical Examination Constitutional: NAD Respiratory: no wheezing Left sided rales/rhonchi, dec AE at left base Cardiovascular: RRR, no rub Gastrointestinal: soft, non-tender, positive bowel sounds Musculoskeletal: no edema Neurological: moves all 4 limbs Dx/Plan - Plan DVT proph w/SCDs IMPRESSION: 1. Sepsis for Pneumonia ?Pneumococcus with Parapneumonic effusion s/p thoracentesis 2. Pleuritic chest pain - trop neg, Echo - normal EF 2. Diabetes mellitus type 2. 3. Hypertension. 4. Hyperlipidemia. 5. Hypomagnesemia. 6. Chronic kidney disease stage 2. 7. Thrombocytosis, probably secondary to #1. 8. Anemia, probably chronic. PLAN: Cont Atbx - Vanc/Lev/Zosyn AM labs Monitor Vancomycin level Monitor vitals closely If worsens then CT consult Review of Systems - Review of Systems Constitutional: fever. negative: chills, sweats, weakness, other Cardiovascular: negative: chest pain, palpitations, orthopnea, paroxysmal nocturnal dyspnea, edema, light headedness, other - Medications/Allergies Allergies/Adverse Reactions: Allergies Allergy/AdvReac Type Severity Reaction Status Date / Time No Known Allergies Allergy Unverified 03/16/18 12:05 Medications: Current Medications Acetaminophen (Tylenol) 650 mg PO Q4H PRN PRN Reason: Headache/Fever or Pain Last Admin: 03/16/18 16:02 Dose: 650 mg Hydrocodone Bitart/Acetaminophen ([place] 5/325) 1 tab PO Q4H PRN PRN Reason: Moderate Pain (4-6) Last Admin: 03/18/18 21:11 Dose: 1 tab Aspirin (Ecotrin) 81 mg PO DAILY [facility] Last Admin: 03/18/18 11:18 Dose: 81 mg Dextrose/Water (Dextrose 50%) 25 gm SLOW IVP PRN PRN PRN Reason: Hypoglycemia Docusate Sodium (Colace) 100 mg PO BID [facility] Last Admin: 03/18/18 21:12 Dose: 100 mg Glimepiride (Amaryl) 1 mg PO QAM-[facility] Last Admin: 03/18/18 11:31 Dose: 1 mg Glucagon (Glucagon) 1 mg IM PRN PRN PRN Reason: Hypoglycemia Hydralazine HCl (Apresoline) 10 mg SLOW IVP Q4H PRN PRN Reason: SBP Greater Than 180 Sodium Chloride (Normal Saline 0.9%) 1,000 mls @ 50 mls/hr IV .Q20H [facility] Last Admin: 03/18/18 13:23 Dose: Not Given Dextrose/Water (D5w) 1,000 mls @ 0 mls/hr IV .Q0M PRN PRN Reason: Hypoglycemia Levofloxacin 750 mg/ Device 150 mls @ 100 mls/hr IVPB Q24HR [facility] Last Admin: 03/18/18 14:49 Dose: 150 mls Piperacillin Sod/Tazobactam (Sod 3.375 gm/ Sodium Chloride) 100 mls @ 200 mls/ hr IVPB Q6HR [facility] Last Admin: 03/18/18 18:01 Dose: 100 mls Vancomycin HCl 1.25 gm/ Sodium (Chloride) 250 mls @ 166.667 mls/hr IVPB 0400, 1200,2000 [facility] Last Admin: 03/18/18 21:10 Dose: 250 mls Insulin Human Regular (Humulin R) 0 units SC .MILD SLIDING SCALE PRN PRN Reason: Mild Correctional Scale Last Admin: 03/18/18 11:32 Dose: 4 unit Ketorolac Tromethamine (Toradol) 15 mg IVP Q6H PRN PRN Reason: Severe Pain (7-10) Stop: 03/21/18 15:39 Last Admin: 03/18/18 18:01 Dose: 15 mg Lisinopril (Zestril) 10 mg PO BID [facility] Last Admin: 03/18/18 21:12 Dose: 10 mg Miscellaneous Medication (Pharmacy To Dose) 1 each IVPB PRN PRN PRN Reason: Pharmacy to dose Nitroglycerin (Nitrostat) 0.4 mg PO Q5MIN PRN PRN Reason: Chest Pain Ondansetron HCl (Zofran Odt) 4 mg PO Q6H PRN PRN Reason: Nausea/Vomiting Ondansetron HCl (Zofran) 4 mg IVP Q6H PRN PRN Reason: Nausea/Vomiting Pantoprazole Sodium (Protonix) 40 mg PO DAILY [facility] Last Admin: 03/18/18 11:18 Dose: 40 mg Pioglitazone HCl (Actos) 15 mg PO DAILY [facility] Last Admin: 03/18/18 11:17 Dose: 15 mg Saccharomyces Boulardii (Florastor) 250 mg PO DAILY [facility] Senna (Senokot) 2 tab PO HSPRN PRN PRN Reason: Constipation Simvastatin (Zocor) 10 mg PO HS [facility] Last Admin: 03/18/18 21:21 Dose: 10 mg Sodium Chloride (Flush - Normal Saline) 10 ml IVF Q12HR [facility] Last Admin: 03/18/18 21:35 Dose: Not Given Sodium Chloride (Flush - Normal Saline) 10 ml IVF PRN PRN PRN Reason: Saline Flush
[2018-03-19] MEDS: Ketorolac Tromethamine 30 MG/ML VIAL IVP PRN ×2 (00:09→07:18)
[2018-03-19] MEDS: Vancomycin HCl 1.25 GM in Sodium Chloride 0.9% 250 ML 250 ML IVPB SCH ×2 (04:41→12:05)
[2018-03-19 06:04] LABS: Anion Gap 14 mmol/L (10-20); BUN (Urea Nitrogen) 16 mg/dL (8.9-20.6); Calc. Creatinine Clearance 91 mL/min (70-130); Calcium 8.9 mg/dL (7.8-10.44); Carbon Dioxide 20 mmol/L (22-29); Chloride 104 mmol/L (98-107); Estimated GFR-MDRD 33; Glucose 158 mg/dL (70-105); Potassium 4.2 mmol/L (3.5-5.1); Sodium 134 mmol/L (136-145)
[2018-03-19 06:37] LABS: Band 13 % (5-11); Eosinophils 3 % (0-10); Hemoglobin 10.5 g/dL (14.0-18.0); Lymphocytes 2 % (21-51); MDiff Complete? YES; Mean Corpuscular HGB CONC 32.6 g/dL (32.0-36.0); Mean Corpuscular Hemoglobin 25.9 pg (27.0-31.0); Mean Corpuscular Volume 79.3 fL (78.0-98.0); Mean Platelet Volume 7.1 fL (7.4-10.4); Monocytes 4 % (0-10); Neutrophil 78 % (42-75); Platelet Count 332 thou/uL (130-400); RBC Distribution Width 14.2 % (11.5-14.5); Red Blood Cell (RBC) Count 4.07 mill/uL (4.70-6.10)
[2018-03-19] MEDS: Piperacillin/Tazobactam 3.375 GM in Sodium Chloride 0.9% 100 ML IVPB SCH (08:08)
[2018-03-19] MEDS: Pioglitazone HCl 15 MG TAB PO SCH (09:51)
[2018-03-19] MEDS: Docusate 100 MG CAP PO SCH ×2 (09:51→21:44)
[2018-03-19] MEDS: Aspirin 81 mg Enteric Coated Tablet PO SCH (09:51)
[2018-03-19] MEDS: Saccharomyces boulardii 250 MG CAP PO SCH (09:51)
[2018-03-19] MEDS: Lisinopril 10 MG TAB PO SCH ×2 (09:51→21:43)
[2018-03-19] MEDS: Glimepiride 1 MG TAB PO SCH (09:52)
--- NOTE | 2018-03-19 11:58 | CON ---
DATE OF CONSULTATION: 03/19/2018 HISTORY OF PRESENT ILLNESS: Mr. Herrmann is a 47-year-old gentleman who is from [place]. He w as traveling back from [place] after taking his daughter to [place] and began to experience chest pain. He came to [place]. He had a CT angio of his chest which was negative except for some pleural flu id on the left. He was started on antibiotics. He continued to have pleuritic chest pain. He had n ot had any fever, chills or other pulmonary symptomatology. Since that time, he has undergone a thor acentesis. Pleural fluid is not culture positive. There were no organisms seen on Gram stain. Repe at chest CT shows a significant consolidation of the left lung. There is also an increased amount of pleural fluid. I have been asked to see him for thoracoscopy/thoracotomy and potential decorticatio n. PAST MEDICAL HISTORY: 1. Diabetes mellitus. 2. Obesity. 3. Hypertension. 4. Dyslipidemia. PAST SURGICAL HISTORY: None. ALLERGIES: None. MEDICATIONS AT HOME: Noted. SOCIAL HISTORY: He does not use alcohol or tobacco. 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 REVIEW OF SYSTEMS: A 10-point review of systems performed and is negative except as above. PHYSICAL EXAMINATION: GENERAL: This is an obese gentleman resting comfortably in the chair. VITAL SIGNS: Height is 6 feet 4 inches, weight is 336 pounds, BSA is 2.86, temperature is 98.3, puls e is 100, blood pressure is 134/70. HEENT: Sclerae nonicteric. Pupils equal and round bilaterally. NECK: Supple. There are no carotid bruits. CHEST: Clear bilaterally. He has diminished breath sounds throughout the left chest. ABDOMEN: Soft and nontender. EXTREMITIES: There is no edema. Chest x-ray and CT series have been reviewed. LABORATORY: His white blood cell count is 17, creatinine is 2.17, potassium is 4.2. ASSESSMENT AND PLAN: Left empyema for a thoracoscopy and decortication.
[2018-03-19] MEDS ORDERED: Fentanyl 250 MCG/5 ML VIAL ONE (12:42)
[2018-03-19] MEDS ORDERED: Midazolam HCl 2 mg/2 ml Vial ONE (12:43)
[2018-03-19] MEDS ORDERED: SUGAMMADEX SODIUM 500 MG/5 ML VIAL ONE (13:47)
[2018-03-19] MEDS ORDERED: Bupivacaine HCl 0.5%/Epinephrine 1:200,000/PF 30 ml Vial ONE (13:48)
[2018-03-19] MEDS ORDERED: Piperacillin/Tazobactam 3.375 GM in Sodium Chloride 0.9% 100 ML IVPB SCH ×2 (14:00→18:00)
--- NOTE | 2018-03-19 14:12 | OP ---
DATE OF OPERATION: 03/19/2018 PREOPERATIVE DIAGNOSIS: Left empyema. POSTOPERATIVE DIAGNOSIS: Left empyema. PROCEDURE: Left thoracoscopy with total pulmonary decortication. SURGEON: Chavez Donato M.D. ANESTHESIA: General endotracheal. ESTIMATED BLOOD LOSS: Minimal. DRAINS: 32-Spanish chest tubes x2. SPECIMENS: None. DESCRIPTION OF PROCEDURE: After consent was obtained, the patient was brought to operating room and placed in supine position on the operating room table. Appropriate anesthetic monitor was placed and general endotracheal anesthesia induced. Double-lumen endotracheal tube positioning was confirmed w ith bronchoscopy. The patient was placed in right lateral decubitus position. Joints were appropria tely padded. SCDs were used. Left chest was prepped and draped in usual sterile fashion. The 3 separate port incisions were made on the left chest wall. Thoracoscope was inserted and adhesions between the chest wall and lung blun tly taken down. Graspers and Yankauer sucker were used to extract all the fluid, which was about 1 l iter total. Loculations were all broken up. Once the lung was completely freed and loculations were all removed, the 32-Spanish chest tubes were placed through the anterior 2 port sites with graspers p ositioning one anteriorly and one posteriorly. The lung reexpanded nicely. The remaining port site was closed in layers and Dermabond applied to the skin. All port sites were injected with 0.5% Slime ine with epinephrine. The patient was then awakened, extubated, and transferred to the recovery room in stable condition. Needle, sponge, and instrument counts were all reported as correct at the end of the procedure.
[2018-03-19] MEDS ORDERED: Succinylcholine Chloride 20 MG/ML 10 ml SYRINGE FS ONE (14:39)
[2018-03-19] MEDS ORDERED: Lidocaine 1% PF 5 ML VIAL ONE (14:39)
[2018-03-19] MEDS ORDERED: PROPOFOL 200 MG/20 ML VIAL ONE (14:39)
--- NOTE | 2018-03-19 15:13 | RAD ---
CHEST 1 VIEW: HISTORY: Chest surgery. COMPARISON: 03/18/18. FINDINGS: Cardiac silhouette is magnified by projection. Left thoracostomy tube in place at the left base with decrease in left pleural fluid. Mediastinum remains midline. Shallow inspiration accentuates pulmo nary markings. IMPRESSION: Left thoracostomy tube in good position with interval decrease in left pleural fluid. POS: [facility]
[2018-03-19] MEDS ORDERED: Fentanyl 100 MCG/2 ML VIAL SLOW IVP PRN ×2 (16:24)
--- NOTE | 2018-03-19 18:54 | RAD ---
CHEST ONE VIEW: 03/19/18 HISTORY: Left thoracoscopy. COMPARISON: Chest radiograph same day. FINDINGS: There appear to be two left drainage tubes in place. One of the tubes, the sideport is outside the ch est cavity. Mild left subcutaneous emphysema. There is a small left pneumothorax. IMPRESSION: One of the left thoracostomy tubes sideport is outside the chest wall. POS: [facility]
[2018-03-19] MEDS: HYDROcodone/Acetaminophen 5/325 mg Tablet PO PRN (19:26)
--- NOTE | 2018-03-19 20:13 | PDOC.PN ---
- Subjective Encounter Start Date: 03/19/18 Encounter Start Time: 15:11 Patient seen and examined by me. Patient was in the [facility]. Resting comfortable in bed s/p Left thoracoscopy with total pulmonary decortication. 32 singaporean chest tube x 2 inserted and draining. States that there is no SOB. Has no complaints. - Objective Resuscitation Status: Resuscitation Status FULL:Full Resuscitation Vital Signs & Weight: Vital Signs (12 hours) Temp Pulse Resp BP Pulse Ox 03/19/18 16:15 97.7 F 113 H 16 138/65 96 03/19/18 10:30 98.3 F 103 H 16 134/70 93 L Weight Weight 336 lb I&O: 03/18/18 03/19/18 03/20/18 06:59 06:59 06:59 Intake Total 3677 480 Output Total 500 75 Balance 3177 405 Result Diagrams: 03/19/18 04:16 03/19/18 04:16 Additional Labs: Accuchecks 03/19/18 03/19/18 03/19/18 16:39 10:32 05:16 POC Glucose 142 H 153 H 158 H 03/18/18 20:23 POC Glucose 195 H Phys Exam - Physical Examination Constitutional: NAD HEENT: PERRLA, moist MMs Neck: no JVD, supple, full ROM Respiratory: no wheezing, no rales Cardiovascular: RRR, no significant murmur, no rub Gastrointestinal: non-tender, no distention Musculoskeletal: no edema, pulses present Neurological: non-focal, normal sensation, moves all 4 limbs Psychiatric: normal affect, A&O x 3 Skin: no rash Deviation from normal: s/p chest tube placement. Dx/Plan (1) Acute kidney failure Status: Acute Comment: Nephrology consulted. Renal function ordered. Will follow up on morning BMP. (2) Empyema lung Code(s): J86.9 - PYOTHORAX WITHOUT FISTULA Status: Acute Comment: s/p left throacoscopy with total pulmonary decortication and chest tube placement. Prelim fluid cultures neg. All cultures neg thus far and pathology negative for neg for malignant cells. Will continue antibiotics (3) Diabetes mellitus type 2 in obese Code(s): E11.69 - TYPE 2 DIABETES MELLITUS WITH OTHER SPECIFIED COMPLICATION; E66.9 - OBESITY, UNSPECIFIED Status: Acute Comment: continue current treatment. (4) Electrolyte abnormality Code(s): E87.8 - OTH DISORDERS OF ELECTROLYTE AND FLUID BALANCE, NEC Status: Acute Comment: resolved. will follow up morning labs. (5) Hypertension Code(s): I10 - ESSENTIAL (PRIMARY) HYPERTENSION Status: Acute (6) S/P thoracostomy tube placement Code(s): Z93.8 - OTHER ARTIFICIAL OPENING STATUS Status: Acute Comment: chest tube draining. Cardiovas. on case and managing patient. - Plan * . see above Review of Systems - Review of Systems Constitutional: negative: fever, chills, sweats, weakness, malaise, other Eyes: negative: Pain, Vision Change, Conjunctivae Inflammation, Eyelid Inflammation, Redness, Other ENT: negative: Ear Pain, Ear Discharge, Nose Pain, Nose Discharge, Nose Congestion, Mouth Pain, Mouth Swelling, Throat Pain, Throat Swelling, Other Respiratory: negative: Cough, Dry, Shortness of Breath, Hemoptysis, SOB with Excertion, Pleuritic Pain, Sputum, Wheezing Cardiovascular: negative: chest pain, palpitations, orthopnea, paroxysmal nocturnal dyspnea, edema, light headedness, other Gastrointestinal: negative: Nausea, Vomiting, Abdominal Pain, Diarrhea, Constipation, Melena, Hematochezia, Other Genitourinary: negative: Dysuria, Frequency, Incontinence, Hematuria, Retention , Other Musculoskeletal: negative: Neck Pain, Shoulder Pain, Arm Pain, Back Pain, Hand Pain, Leg Pain, Foot Pain, Other Skin: negative: Rash, Lesions, Shiva, Bruising, Other Neurological: negative: Weakness, Numbness, Incoordination, Change in Speech, Confusion, Seizures, Other - Medications/Allergies Allergies/Adverse Reactions: Allergies Allergy/AdvReac Type Severity Reaction Status Date / Time No Known Allergies Allergy Unverified 03/16/18 12:05 Medications: Current Medications Acetaminophen (Tylenol) 650 mg PO Q4H PRN PRN Reason: Headache/Fever or Pain Last Admin: 03/16/18 16:02 Dose: 650 mg Hydrocodone Bitart/Acetaminophen ([place] 5/325) 1 tab PO Q4H PRN PRN Reason: Moderate Pain (4-6) Last Admin: 03/19/18 19:26 Dose: 1 tab Aspirin (Ecotrin) 81 mg PO DAILY [facility] Last Admin: 03/19/18 09:51 Dose: 81 mg Dextrose/Water (Dextrose 50%) 25 gm SLOW IVP PRN PRN PRN Reason: Hypoglycemia Docusate Sodium (Colace) 100 mg PO BID [facility] Last Admin: 03/19/18 09:51 Dose: 100 mg Fentanyl (Sublimaze) 25 mcg SLOW IVP Q2H PRN PRN Reason: Pain Last Admin: 03/19/18 16:45 Dose: 25 mcg Glimepiride (Amaryl) 1 mg PO QAM-[facility] Last Admin: 03/19/18 09:52 Dose: Not Given Glucagon (Glucagon) 1 mg IM PRN PRN PRN Reason: Hypoglycemia Hydralazine HCl (Apresoline) 10 mg SLOW IVP Q4H PRN PRN Reason: SBP Greater Than 180 Sodium Chloride (Normal Saline 0.9%) 1,000 mls @ 50 mls/hr IV .Q20H [facility] Last Admin: 03/18/18 23:19 Dose: 1,000 mls Dextrose/Water (D5w) 1,000 mls @ 0 mls/hr IV .Q0M PRN PRN Reason: Hypoglycemia Levofloxacin 750 mg/ Device 150 mls @ 100 mls/hr IVPB Q24HR [facility] Last Admin: 03/19/18 17:42 Dose: 150 mls Piperacillin Sod/Tazobactam (Sod 3.375 gm/ Sodium Chloride) 100 mls @ 200 mls/ hr IVPB Q6HR [facility] Insulin Human Regular (Humulin R) 0 units SC .MILD SLIDING SCALE PRN PRN Reason: Mild Correctional Scale Last Admin: 03/18/18 11:32 Dose: 4 unit Lisinopril (Zestril) 10 mg PO BID [facility] Last Admin: 03/19/18 09:51 Dose: 10 mg Miscellaneous Medication (Pharmacy To Dose) 1 each IVPB PRN PRN PRN Reason: Pharmacy to dose Miscellaneous Medication (Pharmacy To Dose) 1 each IVPB PRN PRN PRN Reason: Pharmacy to dose Nitroglycerin (Nitrostat) 0.4 mg PO Q5MIN PRN PRN Reason: Chest Pain Ondansetron HCl (Zofran Odt) 4 mg PO Q6H PRN PRN Reason: Nausea/Vomiting Ondansetron HCl (Zofran) 4 mg IVP Q6H PRN PRN Reason: Nausea/Vomiting Last Admin: 03/19/18 08:09 Dose: 4 mg Pantoprazole Sodium (Protonix) 40 mg PO DAILY [facility] Last Admin: 03/19/18 09:51 Dose: 40 mg Pioglitazone HCl (Actos) 15 mg PO DAILY [facility] Last Admin: 03/19/18 09:51 Dose: Not Given Saccharomyces Boulardii (Florastor) 250 mg PO DAILY [facility] Last Admin: 03/19/18 09:51 Dose: 250 mg Senna (Senokot) 2 tab PO HSPRN PRN PRN Reason: Constipation Simvastatin (Zocor) 10 mg PO HS [facility] Last Admin: 03/18/18 21:21 Dose: 10 mg Sodium Chloride (Flush - Normal Saline) 10 ml IVF Q12HR [facility] Last Admin: 03/19/18 09:52 Dose: 10 ml Sodium Chloride (Flush - Normal Saline) 10 ml IVF PRN PRN PRN Reason: Saline Flush
--- NOTE | 2018-03-19 21:07 | PRG ---
DATE OF SERVICE: 03/19/2018 SERVICE: Pulmonary Medicine. INTERVAL HISTORY: Patient is doing okay from respiratory standpoint. He continues to have a little bit of pleuritic chest discomfort, which feels a little bit less intense. He denies any shortness of breath or cough. He had had any significant sputum production. Otherwise, there has been no interv al change to his condition. PHYSICAL EXAMINATION: VITAL SIGNS: Afebrile, pulse 113, blood pressure 138/65, respirations 16, saturation 96% on room air . GENERAL: Patient is awake and alert. No apparent distress. LUNGS: There is decent air entry. No prolonged expiratory phase is appreciated. HEART: Normal rate, regular. ABDOMEN: Soft, nontender, nondistended. Bowel sounds are positive. MUSCULOSKELETAL: No cyanosis or clubbing. There is no pitting in the bilateral lower extremities. NEUROLOGIC: Grossly nonfocal. LABORATORY DATA: WBC 17.0, hemoglobin 10.5, platelets 332,000. Neutrophil count is 78% with increas ing band count. Creatinine 2.17, suddenly uptrending. All culture results remain negative to date. IMAGING: Chest x-ray demonstrates two thoracostomy drains in position. One of them has a side port outside of the chest wall. There has been interval improvement in the pleural effusion. ASSESSMENT: 1. Community-acquired pneumonia. 2. Complicated parapneumonic effusion. 3. Obstructive sleep apnea, suspected. 4. Type 2 diabetes mellitus, DISCUSSION AND PLAN: We will discontinue the vancomycin. I will continue the Zosyn, and the fluoroq uinolone. The patient will remain in the hospital until the chest tubes can be removed. After 5 day s of antibiotics, if nothing cultures abnormally, we will switch him over to p.o. Augmentin and will complete a 2-week course of antibiotics. Pulmonary Critical Care will continue to follow while the p any remains in house.
[2018-03-19 21:24] LABS: Albumin 2.8 g/dL (3.5-5.0); Anion Gap 12 mmol/L (10-20); BUN (Urea Nitrogen) 21 mg/dL (8.9-20.6); Calc. Creatinine Clearance 66 mL/min (70-130); Calcium 8.3 mg/dL (7.8-10.44); Carbon Dioxide 22 mmol/L (22-29); Chloride 105 mmol/L (98-107); Estimated GFR-MDRD 23; Glucose 190 mg/dL (70-105); Phosphorus 2.7 mg/dL (2.3-4.7); Potassium 4.3 mmol/L (3.5-5.1); Sodium 135 mmol/L (136-145)
[2018-03-19] MEDS: Simvastatin 5 MG TAB PO SCH (21:44)
[2018-03-19] MEDS: Sodium Chloride 0.9% 1,000 ML IV SCH (21:49)
[2018-03-20] MEDS: Piperacillin/Tazobactam 3.375 GM in Sodium Chloride 0.9% 100 ML IVPB SCH ×3 (00:07→11:43)
[2018-03-20] MEDS: HYDROcodone/Acetaminophen 10/325 mg Tablet PO PRN ×3 (00:15→20:34)
[2018-03-20 05:19] LABS: #Eosinphils 0.2 thou/uL (0.0-0.7); #Monocytes 1.1 thou/uL (0.11-0.59); #Neutrophils 11.2 thou/uL (1.40-6.50); %Eosinophils 1.6 % (0.0-10.0); %Lymphocytes 7.4 % (21.0-51.0); %Monocytes 8.3 % (0.0-10.0); %Neutrophils 82.8 % (42.0-75.0); Hemoglobin 9.3 g/dL (14.0-18.0); Mean Corpuscular HGB CONC 30.7 g/dL (32.0-36.0); Mean Corpuscular Hemoglobin 24.4 pg (27.0-31.0); Mean Corpuscular Volume 79.5 fL (78.0-98.0); Mean Platelet Volume 6.4 fL (7.4-10.4); Platelet Count 311 thou/uL (130-400); RBC Distribution Width 14.2 % (11.5-14.5); Red Blood Cell (RBC) Count 3.82 mill/uL (4.70-6.10); White Blood Cell (WBC) Count 13.5 thou/uL (4.8-10.8)
[2018-03-20 05:20] LABS: Anion Gap 12 mmol/L (10-20); BUN (Urea Nitrogen) 21 mg/dL (8.9-20.6); Calc. Creatinine Clearance 61 mL/min (70-130); Calcium 8.3 mg/dL (7.8-10.44); Carbon Dioxide 23 mmol/L (22-29); Chloride 106 mmol/L (98-107); Estimated GFR-MDRD 21; Glucose 114 mg/dL (70-105); Potassium 4.3 mmol/L (3.5-5.1); Sodium 137 mmol/L (136-145)
[2018-03-20] MEDS: Docusate 100 MG CAP PO SCH ×3 (08:07→20:36)
[2018-03-20] MEDS: Aspirin 81 mg Enteric Coated Tablet PO SCH (08:14)
[2018-03-20] MEDS: Glimepiride 1 MG TAB PO SCH (08:14)
[2018-03-20] MEDS: Saccharomyces boulardii 250 MG CAP PO SCH (08:15)
[2018-03-20] MEDS: Pioglitazone HCl 15 MG TAB PO SCH (08:15)
[2018-03-20] MEDS: Lisinopril 10 MG TAB PO SCH (08:15)
[2018-03-20 09:57] LABS: Bilirubin Negative (Negative); Blood, Urine Large (Negative); Clarity CLOUDY (Clear); Glucose, Urine (Dipstick) Negative (Negative); Leukocyte Moderate (Negative); Nitrite Negative (Negative); Protein, Urine (Dipstick) 30 mg/dL (Neg-Trace); Specific Gravity, Urine 1.018 (1.002-1.036); Urobilinogen 0.2 mg/dL (0.2-1.0); pH, Urine 5.5 (5.0-9.0)
--- NOTE | 2018-03-20 09:58 | CON ---
DATE OF CONSULTATION: 03/20/2018 HISTORY OF PRESENT ILLNESS: Mr. Herrmann is a 47-year-old male who was admitted for pneumoni a. He presented with acute pleuritic chest pain. On chest x-ray, he was found to have a pneumonia. Unfortunately, the pneumonia was complicated by parapneumonic effusion. He underwent pleural cathet er placement. However, this remained unimproved. For that reason, a surgical consult was done where a thoracoscopy was done with pulmonary decortication for a left empyema. We are now being consulted for his acute kidney injury. Please note, he was on ketorolac and this has been discontinued. Patient is feeling better this morning. REVIEW OF SYSTEMS: Positive for left-sided chest pain, no nausea, no vomiting, no diarrhea or consti pation, no fever or chills, no productive cough, no diarrhea, no dysuria, no hematochezia, no melena, no hematemesis, no abdominal pain, no headache. Occasional joint pains. MEDICATIONS: Tylenol p.r.n., [place] 10/325 q.4 hours p.r.n., Amaryl 1 mg p.o. daily, Levaquin 750 mg IV q.24 hours., Protonix 40 mg daily, Actos 50 mg daily, Zosyn 3.375 grams IV q.6 hours, Zocor 10 mg at bedtime, normal saline 50 mL per hour, lisinopril 10 mg p.o. b.i.d. PAST MEDICAL HISTORY: Type 2 diabetes mellitus, COPD, recent diagnosis of pneumonia with parapneumon ic effusion/left emphysema. PAST SURGICAL HISTORY: Recently status post left thoracoscopy with pulmonary decortication. SOCIAL HISTORY: Patient is and lives in [place]. He has 2 children. 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 He is a college graduate. No smoking, no alcohol, no IV drug abuse. No blood tra nsfusion. ALLERGIES: No known drug allergies. TRAUMA: Status post fall with left rib fracture. IMMUNIZATIONS: Not up to date. HOSPITALIZATIONS: Please see past medical history. FAMILY HISTORY: No family history of ESRD. PHYSICAL EXAMINATION: VITAL SIGNS: Blood pressure is 124/63, heart rate 103, temperature 98, respiratory rate 18, pulse ox 93%. GENERAL: Awake, alert, supine, morbidly obese. SKIN: Adequate turgor. HEENT: He has slightly pale conjunctivae, anicteric sclerae. NECK: No neck mass, no carotid bruits, no JVD. CHEST: No deformities. LUNGS: Decreased breath sounds. Positive for chest tube. HEART: Normal sinus rhythm. No murmur, no gallops or rubs. ABDOMEN: Globular, soft, nontender, no masses. EXTREMITIES: No edema. NEUROLOGIC: Moving all extremities. No tremors, no asterixis, no ataxia. LABORATORY DATA: Of 03/20/2018, white count 13.5, hemoglobin 9.3. Sodium 137, potassium 4.3, chlori de 106, carbon dioxide 23, BUN 21, creatinine 3.25. On 03/19/2018, BUN 21, creatinine 3.0. On 03/18, BUN 12, creatinine 0.84. Urinalysis pending. Urine chemistries pending. ASSESSMENT AND PLAN: 1. Acute kidney injury - consider a hemodynamically mediated renal dysfunction. Please note, the pa nida was on lisinopril and ketorolac. The ketorolac has already been discontinued. The plan is to discontinue the lisinopril. Continue gentle volume repletion with this patient. 2. Empyema with status post decortication - on IV antibiotics. Adjust IV antibiotics as needed. Cu rrently being followed by Pulmonary Medicine and Surgery. No indication for any dialytic interventio n. Urinalysis and urine chemistries have been ordered. In addition, I will be ordering a renal ultr asound with this patient.
[2018-03-20 10:00] LABS: Bacteria/HPF None Seen HPF (None Seen); Hyaline Casts/LPF 0-3 HYALINE CAST LPF (0-3 Hyaline); Pathc Cast-AUWi Flag 0.72 (0-2.49); RBC/HPF GREATER THAN 50-TNTC HPF (0-3); WBC/HPF 21-50 HPF (0-3)
[2018-03-20 10:18] LABS: Creatinine, Urine 139.39 mg/dL (63-166)
[2018-03-20 10:36] LABS: Crystals/HPF 3+ URIC ACID HPF (Negative); Renal Epithelial None Seen HPF (0-3); Transitional Epithelial NONE SEEN HPF (0-3)
--- NOTE | 2018-03-20 13:09 | ULT ---
RENAL ULTRASOUND: HISTORY: Renal failure. COMPARISON: None. TECHNIQUE: Sagittal and transverse imaging of the kidneys is performed. FINDINGS: The left and right kidney have an overall normal cortical echotexture. Evaluation is limited by body habitus. In the right renal pelvis, there is a hypoechoic area, which may represent renal parenchym a. A solid mass cannot be excluded. The right kidney measures 12 x 7.4 x 7.4 cm. The left kidney measures 11.3 x 7 x 6.5 cm. Bilaterally, no hydronephrosis. A Casarez catheter decompresses the urinary bladder. IMPRESSION: 1. Limited evaluation. 2. Solid isoechoic mass in the right kidney may represent normal parenchyma. The possibility of a r ight renal mass cannot be completely excluded. Evaluation with renal mass protocol CT is recommended . 3. No hydronephrosis. POS: [facility]
[2018-03-20] MEDS: Sodium Chloride 0.9% 1,000 ML IV SCH (15:41)
--- NOTE | 2018-03-20 19:27 | PRG ---
DATE OF SERVICE: 03/20/2018 SERVICE: Pulmonary Medicine. INTERVAL HISTORY: The patient is doing really quite well from a respiratory standpoint. He denies a ny current chest pain, nausea, vomiting, fevers or chills. Outside where the thoracostomy drains are placed. That being is having less chest discomfort. When he gets up and moves around, he muc h less pain. Additionally, it does not take him very long from settle down any longer. He is really quite pleased with the way he feels at this point. PHYSICAL EXAMINATION: VITAL SIGNS: Afebrile, pulse 103, blood pressure 122/60, respirations 18, saturation 96% on room air . GENERAL: The patient is awake and alert, in no apparent distress. LUNGS: Excellent air entry. Little rub is present on the left. No wheezing, rhonchi or crackles __ ___. HEART: Normal rate, regular. ABDOMEN: Soft, nontender, nondistended. Bowel sounds are positive. MUSCULOSKELETAL: No cyanosis or clubbing. There is no pitting in the bilateral lower extremities. NEUROLOGIC: Grossly nonfocal. LABORATORY DATA: Creatinine continues to trend upward, but it appears to be capping, actually gettin g to the top of the curve. Basic metabolic profile is otherwise unremarkable. WBC is down trending 13.5, hemoglobin 9.3, platelets 311,000. Culture results remain negative to date. IMAGING DATA: Renal ultrasound demonstrates no acute process. There is a possible mass which could represent normal parenchyma. CT was recommended, but this can be postponed for quite some time after his injury resolves. More importantly, there is no evidence of hydronephrosis. ASSESSMENT: 1. Community-acquired pneumonia. 2. Complicated parapneumonic effusion, status post decortication, postoperative day #1. 3. Obstructive sleep apnea, suspected. 4. Type 2 diabetes mellitus. 5. Possible renal mass. DISCUSSION AND PLAN: I will discontinue the Zosyn and fluoroquinolone. I will put the patient on Au gmentin. This will be a 3-week course because of question of whether or not an abscess exists inside the lung. He will require repeat chest x-ray and likely CT scan with his physician in [facility].
[2018-03-20] MEDS: Simvastatin 5 MG TAB PO SCH (20:36)
[2018-03-20] MEDS: Amoxicillin/Potassium Clav 875 MG TAB PO SCH (20:36)
--- NOTE | 2018-03-20 21:02 | PDOC.PN ---
- Subjective Encounter Start Date: 03/20/18 Encounter Start Time: 17:00 Patient seen and examined. NAD. Has chest tubes in place. Getting ready to be transported for ultrasound of the kidneys. - Objective Resuscitation Status: Resuscitation Status FULL:Full Resuscitation MAR Reviewed: Yes Vital Signs & Weight: Vital Signs (12 hours) Temp Pulse Resp BP Pulse Ox 03/20/18 15:37 97.9 F 16 125/60 92 L 03/20/18 11:28 98.1 F 103 H 18 122/60 96 Weight Weight 334 lb I&O: 03/19/18 03/20/18 03/21/18 06:59 06:59 06:59 Intake Total 3677 2190 Output Total 500 725 550 Balance 3177 1465 -550 Result Diagrams: 03/20/18 04:56 03/20/18 04:56 Additional Labs: Accuchecks 03/20/18 03/20/18 03/20/18 16:52 10:44 05:38 POC Glucose 122 H 158 H 101 03/19/18 20:37 POC Glucose 194 H Dx/Plan (1) Acute kidney failure Status: Acute Comment: creatinine trending down. Ultra sound shows possible renal mass but very questionable. needs Ultrasound renal protocol. Nephro is working/managing the renal failure at this time. We agree with their plan. (2) Community acquired pneumonia Code(s): J18.9 - PNEUMONIA, UNSPECIFIED ORGANISM Status: Acute Comment: with parapneumonic effusions. (3) Renal mass Code(s): N28.89 - OTHER SPECIFIED DISORDERS OF KIDNEY AND URETER Status: Acute Comment: Will get urology consult for futher evaluation of this renal mass. Will follow urology's recs. (4) Empyema lung Code(s): J86.9 - PYOTHORAX WITHOUT FISTULA Status: Acute Comment: s/p left throacoscopy with total pulmonary decortication and chest tube placement. Will switch patient to augmentin per Pulm's recs. patient will need ct scan and xrays outpt. (5) Diabetes mellitus type 2 in obese Code(s): E11.69 - TYPE 2 DIABETES MELLITUS WITH OTHER SPECIFIED COMPLICATION; E66.9 - OBESITY, UNSPECIFIED Status: Acute Comment: continue current treatment. (6) Electrolyte abnormality Code(s): E87.8 - OTH DISORDERS OF ELECTROLYTE AND FLUID BALANCE, NEC Status: Acute Comment: resolved. will follow up morning labs. (7) Hypertension Code(s): I10 - ESSENTIAL (PRIMARY) HYPERTENSION Status: Acute (8) S/P thoracostomy tube placement Code(s): Z93.8 - OTHER ARTIFICIAL OPENING STATUS Status: Acute Comment: chest tube draining. Cardiovas. on case and managing patient. - Plan * . see above Review of Systems - Review of Systems Constitutional: negative: fever, chills, sweats, weakness, malaise, other Eyes: negative: Pain, Vision Change, Conjunctivae Inflammation, Eyelid Inflammation, Redness, Other ENT: negative: Ear Pain, Ear Discharge, Nose Pain, Nose Discharge, Nose Congestion, Mouth Pain, Mouth Swelling, Throat Pain, Throat Swelling, Other Respiratory: negative: Cough, Dry, Shortness of Breath, Hemoptysis, SOB with Excertion, Pleuritic Pain, Sputum, Wheezing Cardiovascular: negative: chest pain, palpitations, orthopnea, paroxysmal nocturnal dyspnea, edema, light headedness, other Gastrointestinal: negative: Nausea, Vomiting, Abdominal Pain, Diarrhea, Constipation, Melena, Hematochezia, Other Genitourinary: negative: Dysuria, Frequency, Incontinence, Hematuria, Retention , Other Musculoskeletal: negative: Neck Pain, Shoulder Pain, Arm Pain, Back Pain, Hand Pain, Leg Pain, Foot Pain, Other Skin: negative: Rash, Lesions, Shiva, Bruising, Other Neurological: negative: Weakness, Numbness, Incoordination, Change in Speech, Confusion, Seizures, Other - Medications/Allergies Allergies/Adverse Reactions: Allergies Allergy/AdvReac Type Severity Reaction Status Date / Time No Known Allergies Allergy Unverified 03/16/18 12:05 Medications: Current Medications Acetaminophen (Tylenol) 650 mg PO Q4H PRN PRN Reason: Headache/Fever or Pain Last Admin: 03/16/18 16:02 Dose: 650 mg Hydrocodone Bitart/Acetaminophen ([place] 5/325) 1 tab PO Q4H PRN PRN Reason: Moderate Pain (4-6) Last Admin: 03/19/18 19:26 Dose: 1 tab Hydrocodone Bitart/Acetaminophen ([place] 10/325) 1 tab PO Q4H PRN PRN Reason: Severe Pain (7-10) Last Admin: 03/20/18 20:34 Dose: 1 tab Amoxicillin/Clavulanate Potassium (Augmentin) 875 mg PO Q12HR [facility] Last Admin: 03/20/18 20:36 Dose: 875 mg Aspirin (Ecotrin) 81 mg PO DAILY [facility] Last Admin: 03/20/18 08:14 Dose: 81 mg Dextrose/Water (Dextrose 50%) 25 gm SLOW IVP PRN PRN PRN Reason: Hypoglycemia Docusate Sodium (Colace) 100 mg PO BID [facility] Last Admin: 03/20/18 20:36 Dose: 100 mg Docusate Sodium (Colace) 100 mg PO BID [facility] Last Admin: 03/20/18 08:14 Dose: 100 mg Fentanyl (Sublimaze) 25 mcg SLOW IVP Q2H PRN PRN Reason: Pain Last Admin: 03/19/18 16:45 Dose: 25 mcg Glimepiride (Amaryl) 1 mg PO QAM[facility] Last Admin: 03/20/18 08:14 Dose: 1 mg Glucagon (Glucagon) 1 mg IM PRN PRN PRN Reason: Hypoglycemia Hydralazine HCl (Apresoline) 10 mg SLOW IVP Q4H PRN PRN Reason: SBP Greater Than 180 Sodium Chloride (Normal Saline 0.9%) 1,000 mls @ 50 mls/hr IV .Q20H [facility] Last Admin: 03/20/18 15:41 Dose: 1,000 mls Dextrose/Water (D5w) 1,000 mls @ 0 mls/hr IV .Q0M PRN PRN Reason: Hypoglycemia Insulin Human Regular (Humulin R) 0 units SC .MILD SLIDING SCALE PRN PRN Reason: Mild Correctional Scale Last Admin: 03/18/18 11:32 Dose: 4 unit Miscellaneous Medication (Pharmacy To Dose) 1 each IVPB PRN PRN PRN Reason: Pharmacy to dose Nitroglycerin (Nitrostat) 0.4 mg PO Q5MIN PRN PRN Reason: Chest Pain Ondansetron HCl (Zofran Odt) 4 mg PO Q6H PRN PRN Reason: Nausea/Vomiting Ondansetron HCl (Zofran) 4 mg IVP Q6H PRN PRN Reason: Nausea/Vomiting Last Admin: 03/19/18 08:09 Dose: 4 mg Pantoprazole Sodium (Protonix) 40 mg PO DAILY [facility] Last Admin: 03/20/18 08:15 Dose: 40 mg Pioglitazone HCl (Actos) 15 mg PO DAILY [facility] Last Admin: 03/20/18 08:15 Dose: 15 mg Saccharomyces Boulardii (Florastor) 250 mg PO DAILY [facility] Last Admin: 03/20/18 08:15 Dose: 250 mg Senna (Senokot) 2 tab PO HSPRN PRN PRN Reason: Constipation Simvastatin (Zocor) 10 mg PO HS [facility] Last Admin: 03/20/18 20:36 Dose: 10 mg Sodium Chloride (Flush - Normal Saline) 10 ml IVF Q12HR [facility] Last Admin: 03/20/18 20:36 Dose: 10 ml Sodium Chloride (Flush - Normal Saline) 10 ml IVF PRN PRN PRN Reason: Saline Flush Last Admin: 03/20/18 11:45 Dose: 10 ml
[2018-03-20] MEDS ORDERED: Chloraseptic Spray 180 ml Bottle PO PRN (22:51)
[2018-03-20] MEDS ORDERED: Cepastat Lozenges 1 LOZ PO PRN (22:51)
[2018-03-21] MEDS: Docusate 100 MG CAP PO SCH ×3 (01:59→20:44)
[2018-03-21] MEDS: HYDROcodone/Acetaminophen 10/325 mg Tablet PO PRN ×2 (02:38→17:14)
[2018-03-21 06:14] LABS: #Eosinphils 0.3 thou/uL (0.0-0.7); #Lymphocytes 0.8 thou/uL (1.20-3.40); #Monocytes 1.2 thou/uL (0.11-0.59); #Neutrophils 12.3 thou/uL (1.40-6.50); %Basophils 0.1 % (0.0-1.0); %Eosinophils 1.9 % (0.0-10.0); %Lymphocytes 5.7 % (21.0-51.0); %Monocytes 8.2 % (0.0-10.0); %Neutrophils 84.1 % (42.0-75.0); Hemoglobin 9.6 g/dL (14.0-18.0); Mean Corpuscular HGB CONC 32.7 g/dL (32.0-36.0); Mean Corpuscular Hemoglobin 25.8 pg (27.0-31.0); Mean Corpuscular Volume 78.9 fL (78.0-98.0); Mean Platelet Volume 6.4 fL (7.4-10.4); Platelet Count 369 thou/uL (130-400); RBC Distribution Width 14.4 % (11.5-14.5); Red Blood Cell (RBC) Count 3.71 mill/uL (4.70-6.10); White Blood Cell (WBC) Count 14.6 thou/uL (4.8-10.8)
[2018-03-21 06:23] LABS: Anion Gap 17 mmol/L (10-20); BUN (Urea Nitrogen) 22 mg/dL (8.9-20.6); Calc. Creatinine Clearance 57 mL/min (70-130); Calcium 8.5 mg/dL (7.8-10.44); Carbon Dioxide 17 mmol/L (22-29); Chloride 105 mmol/L (98-107); Estimated GFR-MDRD 19; Glucose 89 mg/dL (70-105); Potassium 4.3 mmol/L (3.5-5.1); Sodium 135 mmol/L (136-145)
[2018-03-21] MEDS ORDERED: Albumin 25% 25 GM/100 ML BOT IVPB ONE (07:58)
[2018-03-21] MEDS: Albumin 25% 25 GM/100 ML BOT IVPB SCH ×3 (08:53→20:44)
[2018-03-21] MEDS: Aspirin 81 mg Enteric Coated Tablet PO SCH (08:54)
[2018-03-21] MEDS: Glimepiride 1 MG TAB PO SCH (08:54)
[2018-03-21] MEDS: Amoxicillin/Potassium Clav 875 MG TAB PO SCH ×2 (08:54→20:44)
[2018-03-21] MEDS: Saccharomyces boulardii 250 MG CAP PO SCH (08:54)
[2018-03-21] MEDS: Pioglitazone HCl 15 MG TAB PO SCH (08:54)
[2018-03-21] MEDS: HYDROcodone/Acetaminophen 5/325 mg Tablet PO PRN ×2 (08:58→13:24)
--- NOTE | 2018-03-21 09:41 | PRG ---
DATE OF SERVICE: 03/21/2018 SUBJECTIVE: Mr. Herrmann is a 47-year-old white male who was admitted for complicated pneumonia. He was found to have left empyema and underwent pulmonary decortication. In addition, we are now seeing this patient for his acute kidney injury. Our feeling is that this is hemodynamically mediated addy l dysfunction. His ketorolac and lisinopril has been placed on hold. He is receiving IV infusion. I have started him on salt poor albumin. Renal function is relatively unchanged this morning. During the initial workup, a renal ultrasound was done and it showed a? of right kidney mass -this ma y actually represent normal renal parenchyma versus tumor. Recommendation is a renal mass CT protoco l. However, due to the renal dysfunction, we are holding off the CT scan with imaging. I did explai n to the patient that he may need to have actually reimage his kidneys once he gets back to [facility]. The patient voices no new complaints. No chest pain or shortness of breath. Please note, th e left chest tube has been pulled out. OBJECTIVE: VITAL SIGNS: Blood pressure is 145/67, heart rate 112, respiratory rate 16, temperature 97.9, pulse ox 94% on room air. GENERAL: Awake, alert, comfortable, obese, not in distress. SKIN: Adequate turgor. HEENT: Slightly pale conjunctivae, anicteric sclerae. NECK: No neck mass, no carotid bruits, no JVD. CHEST: No deformities. LUNGS: Decreased breath sounds in the left, right has clear breath sounds. HEART: Tachycardic, no murmur, no gallops or rubs. ABDOMEN: Globular, soft, nontender. EXTREMITIES: No edema, no deformities. MEDICATIONS: Of 03/21/2018 was reviewed. LABORATORY DATA AND IMAGING: Of 03/21/2018, white count 14.6, hemoglobin 9.6. Sodium 135, potassium 4.3, chloride 105, carbon dioxide 17, BUN 22, creatinine 3.5, glucose 89, calcium 8.5. Renal ultras ound of 03/20/2018 shows solid isoechoic mass in the right kidney which may represent normal parenchy ma versus renal tumor. Recommendation is further imaging. ASSESSMENT AND PLAN: 1. Acute kidney injury - I still suspect this is a hemodynamically mediated renal dysfunction. I di d review the urinalysis and there is no evidence of acute tubular necrosis. The urinalysis did show some hematuria. This may need to be redone again in the next several days. If the hematuria will be persistent, he may need a comprehensive urological workup. Continue current management. I have sta rted this patient with salt poor albumin 25 grams IV q.6 for 3 days. 2. Pneumonia with empyema - status post chest tube placement, as well as pulmonary decortication. D oing well on antibiotics. 3. ? of right renal mass - Further imaging CT scan renal mass protocol once the kidney function goes back to normal. Agree with current management.
--- NOTE | 2018-03-21 09:49 | PDOC.PN ---
- Subjective Encounter Start Date: 03/21/18 Encounter Start Time: 09:48 seen and examined. NAD. - Objective Resuscitation Status: Resuscitation Status FULL:Full Resuscitation MAR Reviewed: Yes Vital Signs & Weight: Vital Signs (12 hours) Temp Pulse Resp BP Pulse Ox 03/21/18 07:45 97.9 F 112 H 16 145/67 H 94 L 03/21/18 03:20 97.6 F 110 H 16 132/63 92 L Weight Weight 333 lb 6.4 oz I&O: 03/20/18 03/21/18 03/22/18 06:59 06:59 06:59 Intake Total 2190 1450 Output Total 725 850 Balance 1465 600 Result Diagrams: 03/21/18 05:28 03/21/18 05:28 Additional Labs: Accuchecks 03/21/18 03/20/18 03/20/18 05:48 20:32 16:52 POC Glucose 79 97 122 H 03/20/18 10:44 POC Glucose 158 H Phys Exam - Physical Examination Constitutional: NAD HEENT: PERRLA, moist MMs Neck: no JVD, supple Respiratory: no wheezing, no rales Cardiovascular: RRR, no significant murmur, no rub Gastrointestinal: soft, non-tender, no distention Musculoskeletal: no edema, pulses present Neurological: non-focal, normal sensation, moves all 4 limbs Psychiatric: normal affect, A&O x 3 Skin: no rash Dx/Plan (1) Acute kidney failure Status: Acute Comment: 2/2 contrast induced nephropathy. Patient CTA w/ contrast caused patient elevated creatinine. Due to elevated creatinine all further test such as renal protocol has to be done outpt. Will follow with nephrology regarding further workup. Urology already saw the patient and signed off at this point. All urological procedures will have to be done outpt. (2) Community acquired pneumonia Code(s): J18.9 - PNEUMONIA, UNSPECIFIED ORGANISM Status: Acute Comment: with parapneumonic effusions. s/p drainage (3) Renal mass Code(s): N28.89 - OTHER SPECIFIED DISORDERS OF KIDNEY AND URETER Status: Acute Comment: urology evaluated patient. Has given patient's family information regarding doing outpatient renal protocol after patient's contrast induced nephropathy resolves. (4) Empyema lung Code(s): J86.9 - PYOTHORAX WITHOUT FISTULA Status: Acute Comment: s/p left throacoscopy with total pulmonary decortication. s/p chest tube removal. Per PUlm will taper of antibiotics when xray improves. will follow with their plan. (5) Diabetes mellitus type 2 in obese Code(s): E11.69 - TYPE 2 DIABETES MELLITUS WITH OTHER SPECIFIED COMPLICATION; E66.9 - OBESITY, UNSPECIFIED Status: Acute Comment: continue current treatment. (6) Electrolyte abnormality Code(s): E87.8 - OTH DISORDERS OF ELECTROLYTE AND FLUID BALANCE, NEC Status: Acute Comment: resolved. will follow up morning labs. (7) Hypertension Code(s): I10 - ESSENTIAL (PRIMARY) HYPERTENSION Status: Chronic (8) S/P thoracostomy tube placement Code(s): Z93.8 - OTHER ARTIFICIAL OPENING STATUS Status: Acute Comment: chest tube removed by [facility]. - Plan * . Review of Systems - Review of Systems Constitutional: negative: fever, chills, sweats, weakness, malaise, other Eyes: negative: Pain, Vision Change, Conjunctivae Inflammation, Eyelid Inflammation, Redness, Other ENT: negative: Ear Pain, Ear Discharge, Nose Pain, Nose Discharge, Nose Congestion, Mouth Pain, Mouth Swelling, Throat Pain, Throat Swelling, Other Respiratory: negative: Cough, Dry, Shortness of Breath, Hemoptysis, SOB with Excertion, Pleuritic Pain, Sputum, Wheezing Cardiovascular: negative: chest pain, palpitations, orthopnea, paroxysmal nocturnal dyspnea, edema, light headedness, other Gastrointestinal: negative: Nausea, Vomiting, Abdominal Pain, Diarrhea, Constipation, Melena, Hematochezia, Other Genitourinary: negative: Dysuria, Frequency, Incontinence, Hematuria, Retention , Other Musculoskeletal: negative: Neck Pain, Shoulder Pain, Arm Pain, Back Pain, Hand Pain, Leg Pain, Foot Pain, Other Skin: negative: Rash, Lesions, Shiva, Bruising, Other Neurological: negative: Weakness, Numbness, Incoordination, Change in Speech, Confusion, Seizures, Other - Medications/Allergies Allergies/Adverse Reactions: Allergies Allergy/AdvReac Type Severity Reaction Status Date / Time No Known Allergies Allergy Unverified 03/16/18 12:05 Medications: Current Medications Acetaminophen (Tylenol) 650 mg PO Q4H PRN PRN Reason: Headache/Fever or Pain Last Admin: 03/16/18 16:02 Dose: 650 mg Hydrocodone Bitart/Acetaminophen ([place] 5/325) 1 tab PO Q4H PRN PRN Reason: Moderate Pain (4-6) Last Admin: 03/21/18 08:58 Dose: 1 tab Hydrocodone Bitart/Acetaminophen ([place] 10/325) 1 tab PO Q4H PRN PRN Reason: Severe Pain (7-10) Last Admin: 03/21/18 02:38 Dose: 1 tab Albumin Human (Albumin 25%) 25 gm IVPB Q6H [facility] Stop: 03/24/18 02:01 Last Admin: 03/21/18 08:53 Dose: 25 gm Amoxicillin/Clavulanate Potassium (Augmentin) 875 mg PO Q12HR [facility] Last Admin: 03/21/18 08:54 Dose: 875 mg Aspirin (Ecotrin) 81 mg PO DAILY [facility] Last Admin: 03/21/18 08:54 Dose: 81 mg Dextrose/Water (Dextrose 50%) 25 gm SLOW IVP PRN PRN PRN Reason: Hypoglycemia Docusate Sodium (Colace) 100 mg PO BID [facility] Last Admin: 03/21/18 08:54 Dose: 100 mg Fentanyl (Sublimaze) 25 mcg SLOW IVP Q2H PRN PRN Reason: Pain Last Admin: 03/19/18 16:45 Dose: 25 mcg Glimepiride (Amaryl) 1 mg PO QAM[facility] Last Admin: 03/21/18 08:54 Dose: 1 mg Glucagon (Glucagon) 1 mg IM PRN PRN PRN Reason: Hypoglycemia Hydralazine HCl (Apresoline) 10 mg SLOW IVP Q4H PRN PRN Reason: SBP Greater Than 180 Sodium Chloride (Normal Saline 0.9%) 1,000 mls @ 50 mls/hr IV .Q20H [facility] Last Admin: 03/20/18 15:41 Dose: 1,000 mls Dextrose/Water (D5w) 1,000 mls @ 0 mls/hr IV .Q0M PRN PRN Reason: Hypoglycemia Insulin Human Regular (Humulin R) 0 units SC .MILD SLIDING SCALE PRN PRN Reason: Mild Correctional Scale Last Admin: 03/18/18 11:32 Dose: 4 unit Miscellaneous Medication (Pharmacy To Dose) 1 each IVPB PRN PRN PRN Reason: Pharmacy to dose Nitroglycerin (Nitrostat) 0.4 mg PO Q5MIN PRN PRN Reason: Chest Pain Ondansetron HCl (Zofran Odt) 4 mg PO Q6H PRN PRN Reason: Nausea/Vomiting Ondansetron HCl (Zofran) 4 mg IVP Q6H PRN PRN Reason: Nausea/Vomiting Last Admin: 03/19/18 08:09 Dose: 4 mg Pantoprazole Sodium (Protonix) 40 mg PO DAILY [facility] Last Admin: 03/21/18 08:54 Dose: 40 mg Phenol (Chloraseptic [place] 180 Ml Bot) 0 ml PO TIDPRN PRN PRN Reason: SORE THROAT Last Admin: 03/21/18 02:40 Dose: 2 spr Pioglitazone HCl (Actos) 15 mg PO DAILY [facility] Last Admin: 03/21/18 08:54 Dose: 15 mg Saccharomyces Boulardii (Florastor) 250 mg PO DAILY [facility] Last Admin: 03/21/18 08:54 Dose: 250 mg Senna (Senokot) 2 tab PO HSPRN PRN PRN Reason: Constipation Simvastatin (Zocor) 10 mg PO HS [facility] Last Admin: 03/20/18 20:36 Dose: 10 mg Sodium Chloride (Flush - Normal Saline) 10 ml IVF Q12HR [facility] Last Admin: 03/21/18 08:55 Dose: Not Given Sodium Chloride (Flush - Normal Saline) 10 ml IVF PRN PRN PRN Reason: Saline Flush Last Admin: 03/20/18 11:45 Dose: 10 ml Throat Lozenges (Cepastat Lozenges) 1 gianni PO TIDPRN PRN PRN Reason: SORE THROAT
--- NOTE | 2018-03-21 10:15 | RAD ---
AP VIEW CHEST: INDICATIONS: History of VATS and chest tube placement. COMPARISON: Prior study dated 03/19/2018. FINDINGS: Since the comparison examination, the two thoracostomy tubes are unchanged in position. There has be en some recurrence of an extrapleural density along the left lung apex, which may reflect reaccumulat ion of a loculated pleural collection overlying the left upper lobe. Cardiomegaly persists. The rig ht lung remains clear. No pneumothorax is evident. IMPRESSION: 1. Suspected pleural-based opacification of the left upper lobe, suspicious for reaccumulation of pl eural fluid within the left upper hemithorax, adjacent to the left upper lobe. Alternatively, this m ay be related to subsegmental volume loss within the left upper lobe. 2. Left-sided thoracostomy tubes are unchanged. POS: [facility]
[2018-03-21] MEDS: Sodium Chloride 0.9% 1,000 ML IV SCH (12:13)
--- NOTE | 2018-03-21 14:05 | CON ---
DATE OF CONSULTATION: 03/21/2018 REASON FOR CONSULTATION: Abnormal renal ultrasound. HISTORY OF PRESENT ILLNESS: Mr. Herrmann is a 47-year-old gentleman who developed acute onset of pleu ritic chest pain on 03/16/2018. He presented to the [facility] for evaluation. Since admission, he was diagnosed with empyema. He is now status post thoracoscopy with decortication on the left side. As of today, he is doing much better and his chest tube has been re moved. He was admitted with a creatinine of 0.8, but then his creatinine increased to as high as 3.3 . Renal consultation was obtained and a renal ultrasound was then obtained. The ultrasound demonstr ates a possible renal mass. For that reason, urologic consultation was obtained. The patient denies any prior urologic history. He states he has never been in the hospital or had any surgeries prior to this admission. He denies any voiding difficulty or hematuria. PAST MEDICAL HISTORY: Hypertension, type 2 diabetes, hyperlipidemia. PAST SURGICAL HISTORY: Thoracoscopy with a left decortication for empyema during this admission. ALLERGIES: No known drug allergies. MEDICATIONS PRIOR TO ADMISSION: Metformin, lovastatin, lisinopril, hydrochlorothiazide, glimepiride. SOCIAL HISTORY: He is a nonsmoker. Denies excessive alcohol use. He lives in [facility] traveling from [place] back home when he developed his current illness. He is and has a suppo rtive family. REVIEW OF SYSTEMS: Respiratory: Shortness of breath with pleuritic chest pain on admission. Cardio vascular: Denies chest pain or palpitation. Gastrointestinal: Denies chronic constipation or diarr hea. Genitourinary: Please see history of present illness. Musculoskeletal: Denies any pain or sw elling of the joints. Neurologic: Denies any chronic anxiety issues. PHYSICAL EXAMINATION: GENERAL: He is a healthy, though overweight gentleman who appears his stated age. He is in no acute distress at this time. HEENT: Normocephalic, atraumatic. NECK: Supple, without masses. CHEST: Clear to auscultation. CARDIOVASCULAR: No murmurs are auscultated. ABDOMEN: Soft, nontender. No palpable masses. Liver and spleen are palpable. No abdominal tendern ess noted. IMAGING: Renal ultrasound demonstrates a solid-appearing hypoechoic area near the right renal pelvis . The images are difficult to evaluate partly as a result of body habitus. RECOMMENDATIONS: He will need more formal imaging. CT with and without IV contrast is recommended. I have discussed these findings with the patient and with his family. This is not an ideal time to obtain these images because of his current renal dysfunction. After his renal function has returned to normal, he will need a CT scan with and without contrast. He plans to obtain these studies after returning home to [place]. I have given the patient and his a copy of his renal ultrasou nd, which also has the recommended followup imaging mentioned in the report. PLAN: No further urologic intervention at this time.
--- NOTE | 2018-03-21 17:17 | PRG ---
DATE OF SERVICE: 03/21/2018 SERVICE: Pulmonary Medicine. INTERVAL HISTORY: The patient is doing really well from a cardiovascular and respiratory standpoint. He is breathing comfortably. Chest tubes were removed this morning. There has been no interval ch mahi to his condition otherwise. His pain improved. He continues to make urine. PHYSICAL EXAMINATION: VITAL SIGNS: Afebrile, pulse 112, blood pressure 119/59, respirations 16, saturation 95% on room air . GENERAL: The patient is awake and alert, in no apparent distress. LUNGS: Excellent air entry. There is no prolonged expiratory phase or wheezing present. HEART: Normal rate, regular. ABDOMEN: Soft, nontender, nondistended. Bowel sounds are positive. MUSCULOSKELETAL: No cyanosis or clubbing. There is no pitting in the bilateral lower extremities. NEUROLOGIC: Grossly nonfocal. LABORATORY DATA: WBC 14.6, hemoglobin 9.6, platelets 369,000. Neutrophil count is 84%. Creatinine 3.50, continuing to trend upward gently. Basic metabolic profile and calcium are otherwise unremarka ble. Group A strep screen was negative. All thoracentesis cultures and blood cultures remain negati ve to date. IMAGING DATA: Chest x-ray demonstrates pleural base opacification in the left upper lobe which is ne w. It may be related to atelectasis versus loculated area of effusion. This is a very underpenetrat ed film precluding good evaluation of some of the other structures. ASSESSMENT: 1. Community-acquired pneumonia. 2. Complicated parapneumonic pleural effusion, status post decortication, postoperative day #2. 3. Obstructive sleep apnea, suspected. 4. Type 2 diabetes mellitus. 5. Possible renal mass, requiring further imaging in the outpatient setting. DISCUSSION AND PLAN: The patient is still on Augmentin. We will repeat CBC in the morning. If the patient feels good, and white blood cell count is down trending, he can be considered for transition out of the hospital, provided the chest x-ray is improved. I will get a formal 2 view chest x-ray in the morning. I suspect the acute kidney injury is from a contrast load while on metformin. Pulmona ry will continue to follow along.
[2018-03-21] MEDS: Simvastatin 5 MG TAB PO SCH (20:44)
[2018-03-22] MEDS: Albumin 25% 25 GM/100 ML BOT IVPB SCH ×4 (02:34→21:05)
[2018-03-22] MEDS: HYDROcodone/Acetaminophen 10/325 mg Tablet PO PRN ×2 (02:46→17:33)
--- NOTE | 2018-03-22 08:45 | RAD ---
PA AND LATERAL CHEST: HISTORY: A 47-year-old male with a history of followup effusion/pneumonia. COMPARISON: 03/20/18. FINDINGS: There is persistent fairly extensive pleural and parenchymal opacity changes in the left chest, parti cularly the mid and lower lung zones with a circumscribed abnormal opacity in the left apical region, probably loculated pleural fluid. The right lung remains stable. The heart size is stable. IMPRESSION: Overall stable appearance of the left chest with extensive pleural and parenchymal opacity changes, p articularly in the mid and lower lung zone and abnormal circumscribed opacity in the left upper chest , probably representing loculated pleural fluid. Continued short-term followup for clearing or stabi lity. POS: [facility]
[2018-03-22] MEDS: Glimepiride 1 MG TAB PO SCH (08:56)
[2018-03-22] MEDS: Aspirin 81 mg Enteric Coated Tablet PO SCH (08:56)
[2018-03-22] MEDS: Docusate 100 MG CAP PO SCH ×2 (08:56→21:06)
[2018-03-22] MEDS: Amoxicillin/Potassium Clav 875 MG TAB PO SCH ×2 (08:56→21:05)
[2018-03-22] MEDS: Pioglitazone HCl 15 MG TAB PO SCH (08:56)
[2018-03-22] MEDS: Saccharomyces boulardii 250 MG CAP PO SCH (08:56)
[2018-03-22 09:55] LABS: Anion Gap 16 mmol/L (10-20); BUN (Urea Nitrogen) 24 mg/dL (8.9-20.6); Calc. Creatinine Clearance 55 mL/min (70-130); Calcium 8.7 mg/dL (7.8-10.44); Carbon Dioxide 18 mmol/L (22-29); Chloride 104 mmol/L (98-107); Estimated GFR-MDRD 18; Glucose 129 mg/dL (70-105); Potassium 4.1 mmol/L (3.5-5.1); Sodium 134 mmol/L (136-145)
--- NOTE | 2018-03-22 10:09 | PRG ---
DATE OF SERVICE: 03/22/2018 SUBJECTIVE: Mr. Herrmann is a 47-year-old white male who was admitted for pneumonia and complicated b y an empyema. We are now following this patient for his acute kidney injury. I am treating this acu te kidney injury from a prerenal azotemia etiology. He is receiving saline as well as crystalloid in fusion. Creatinine remains unimproved. We are awaiting for repeat creatinine today. No other compl aints today. He is feeling better. Please note his chest tube has been pulled out. This patient rivera s also undergone a pulmonary decortication. He voices no new complaints. PHYSICAL EXAMINATION: VITAL SIGNS: Blood pressure 145/72, heart rate 103, respiratory rate 16, temperature 98.3, pulse ox 94%. GENERAL: Noted to be awake, alert, comfortable, not in distress, obese. SKIN: Adequate turgor. HEENT: He has slightly pale conjunctivae, anicteric sclerae. NECK: No neck mass, no carotid bruits, no JVD. CHEST: No deformities. LUNGS: Decreased breath sounds left, right with clear breath sounds. HEART: Tachycardic, no murmur, no gallops or rubs. ABDOMEN: Globular, soft, nontender. EXTREMITIES: No edema, no deformities. MEDICATIONS: 03/22/2018 - Reviewed. LABORATORY DATA: 03/21/2018 - White count 14.6, hemoglobin 9.6, BUN 722, creatinine 3.5. 03/22/2018 - Creatinine is pending. ASSESSMENT AND PLAN: 1. Acute kidney injury - consider a hemodynamically mediated renal dysfunction. Continue salt poor albumin infusion as well as crystalloid infusion. There is no indication for any dialytic interventi on. The patient is not in volume overload. Continue IV volume repletion. 2. Status post pneumonia/empyema - on antibiotics - status post pulmonary decortication. Doing well . Surgery and Pulmonary is following. Overall, I agree with current management. We will be rechecking a base met and CBC in a.m.
--- NOTE | 2018-03-22 11:45 | PDOC.PN ---
- Subjective Encounter Start Date: 03/22/18 Encounter Start Time: 11:43 seen and examined. NAD. - Objective Resuscitation Status: Resuscitation Status FULL:Full Resuscitation MAR Reviewed: Yes Vital Signs & Weight: Vital Signs (12 hours) Temp Pulse Resp BP Pulse Ox 03/22/18 08:25 98.3 F 103 H 16 145/72 H 94 L 03/22/18 04:00 97.3 F L 106 H 18 152/70 H 91 L Weight Weight 342 lb 8 oz I&O: 03/21/18 03/22/18 03/23/18 06:59 06:59 06:59 Intake Total 1450 1700 Output Total 850 975 Balance 600 725 Result Diagrams: 03/21/18 05:28 03/22/18 09:30 Additional Labs: Accuchecks 03/22/18 03/21/18 03/21/18 06:10 20:42 16:20 POC Glucose 122 H 134 H 112 H Phys Exam - Physical Examination Constitutional: NAD HEENT: PERRLA, moist MMs Neck: no JVD, supple, full ROM Respiratory: no wheezing, no rales Cardiovascular: RRR, no significant murmur, no rub Gastrointestinal: soft, non-tender, no distention, positive bowel sounds Musculoskeletal: no edema Neurological: non-focal, normal sensation, moves all 4 limbs Psychiatric: A&O x 3 Dx/Plan (1) Acute kidney failure Status: Acute Comment: 2/2 contrast induced nephropathy. Patient CTA w/ contrast caused patient elevated creatinine. still worsening. Will continue nephrology's management. (2) Community acquired pneumonia Code(s): J18.9 - PNEUMONIA, UNSPECIFIED ORGANISM Status: Acute Comment: with parapneumonic effusions. s/p drainage. Follow up xray shows stable imaging compared to prior. (3) Renal mass Code(s): N28.89 - OTHER SPECIFIED DISORDERS OF KIDNEY AND URETER Status: Acute Comment: urology evaluated patient. Has given patient's family information regarding doing outpatient renal protocol after patient's contrast induced nephropathy resolves. (4) Empyema lung Code(s): J86.9 - PYOTHORAX WITHOUT FISTULA Status: Acute Comment: s/p left throacoscopy with total pulmonary decortication. s/p chest tube removal. Per PUlm will taper of antibiotics when xray improves. will follow with their plan. (5) Diabetes mellitus type 2 in obese Code(s): E11.69 - TYPE 2 DIABETES MELLITUS WITH OTHER SPECIFIED COMPLICATION; E66.9 - OBESITY, UNSPECIFIED Status: Acute Comment: continue current treatment. (6) Electrolyte abnormality Code(s): E87.8 - OTH DISORDERS OF ELECTROLYTE AND FLUID BALANCE, NEC Status: Acute Comment: resolved. will follow up morning labs. (7) Hypertension Code(s): I10 - ESSENTIAL (PRIMARY) HYPERTENSION Status: Chronic (8) S/P thoracostomy tube placement Code(s): Z93.8 - OTHER ARTIFICIAL OPENING STATUS Status: Acute Comment: chest tube removed by [facility]. - Plan * . Review of Systems - Review of Systems Constitutional: negative: fever, chills, sweats, weakness, malaise, other Eyes: negative: Pain, Vision Change, Conjunctivae Inflammation, Eyelid Inflammation, Redness, Other ENT: negative: Ear Pain, Ear Discharge, Nose Pain, Nose Discharge, Nose Congestion, Mouth Pain, Mouth Swelling, Throat Pain, Throat Swelling, Other Respiratory: negative: Cough, Dry, Shortness of Breath, Hemoptysis, SOB with Excertion, Pleuritic Pain, Sputum, Wheezing Cardiovascular: negative: chest pain, palpitations, orthopnea, paroxysmal nocturnal dyspnea, edema, light headedness, other Gastrointestinal: negative: Nausea, Vomiting, Abdominal Pain, Diarrhea, Constipation, Melena, Hematochezia, Other Genitourinary: negative: Dysuria, Frequency, Incontinence, Hematuria, Retention , Other Musculoskeletal: negative: Neck Pain, Shoulder Pain, Arm Pain, Back Pain, Hand Pain, Leg Pain, Foot Pain, Other Skin: negative: Rash, Lesions, Shiva, Bruising, Other Neurological: negative: Weakness, Numbness, Incoordination, Change in Speech, Confusion, Seizures, Other - Medications/Allergies Allergies/Adverse Reactions: Allergies Allergy/AdvReac Type Severity Reaction Status Date / Time No Known Allergies Allergy Unverified 03/16/18 12:05 Medications: Current Medications Acetaminophen (Tylenol) 650 mg PO Q4H PRN PRN Reason: Headache/Fever or Pain Last Admin: 03/16/18 16:02 Dose: 650 mg Hydrocodone Bitart/Acetaminophen ([place] 5/325) 1 tab PO Q4H PRN PRN Reason: Moderate Pain (4-6) Last Admin: 03/21/18 13:24 Dose: 1 tab Hydrocodone Bitart/Acetaminophen ([place] 10/325) 1 tab PO Q4H PRN PRN Reason: Severe Pain (7-10) Last Admin: 03/22/18 02:46 Dose: 1 tab Albumin Human (Albumin 25%) 25 gm IVPB Q6H [facility] Stop: 03/24/18 02:01 Last Admin: 03/22/18 08:56 Dose: 25 gm Amoxicillin/Clavulanate Potassium (Augmentin) 875 mg PO Q12HR [facility] Last Admin: 03/22/18 08:56 Dose: 875 mg Aspirin (Ecotrin) 81 mg PO DAILY [facility] Last Admin: 03/22/18 08:56 Dose: 81 mg Dextrose/Water (Dextrose 50%) 25 gm SLOW IVP PRN PRN PRN Reason: Hypoglycemia Docusate Sodium (Colace) 100 mg PO BID [facility] Last Admin: 03/22/18 08:56 Dose: 100 mg Fentanyl (Sublimaze) 25 mcg SLOW IVP Q2H PRN PRN Reason: Pain Last Admin: 03/19/18 16:45 Dose: 25 mcg Glimepiride (Amaryl) 1 mg PO QAM-WM [facility] Last Admin: 03/22/18 08:56 Dose: 1 mg Glucagon (Glucagon) 1 mg IM PRN PRN PRN Reason: Hypoglycemia Hydralazine HCl (Apresoline) 10 mg SLOW IVP Q4H PRN PRN Reason: SBP Greater Than 180 Sodium Chloride (Normal Saline 0.9%) 1,000 mls @ 50 mls/hr IV .Q20H [facility] Last Admin: 03/21/18 12:13 Dose: 1,000 mls Dextrose/Water (D5w) 1,000 mls @ 0 mls/hr IV .Q0M PRN PRN Reason: Hypoglycemia Insulin Human Regular (Humulin R) 0 units SC .MILD SLIDING SCALE PRN PRN Reason: Mild Correctional Scale Last Admin: 03/18/18 11:32 Dose: 4 unit Miscellaneous Medication (Pharmacy To Dose) 1 each IVPB PRN PRN PRN Reason: Pharmacy to dose Nitroglycerin (Nitrostat) 0.4 mg PO Q5MIN PRN PRN Reason: Chest Pain Ondansetron HCl (Zofran Odt) 4 mg PO Q6H PRN PRN Reason: Nausea/Vomiting Ondansetron HCl (Zofran) 4 mg IVP Q6H PRN PRN Reason: Nausea/Vomiting Last Admin: 03/19/18 08:09 Dose: 4 mg Pantoprazole Sodium (Protonix) 40 mg PO DAILY [facility] Last Admin: 03/22/18 08:56 Dose: 40 mg Phenol (Chloraseptic [place] 180 Ml Bot) 0 ml PO TIDPRN PRN PRN Reason: SORE THROAT Last Admin: 03/21/18 02:40 Dose: 2 spr Pioglitazone HCl (Actos) 15 mg PO DAILY [facility] Last Admin: 03/22/18 08:56 Dose: 15 mg Saccharomyces Boulardii (Florastor) 250 mg PO DAILY [facility] Last Admin: 03/22/18 08:56 Dose: 250 mg Senna (Senokot) 2 tab PO HSPRN PRN PRN Reason: Constipation Simvastatin (Zocor) 10 mg PO HS [facility] Last Admin: 03/21/18 20:44 Dose: 10 mg Sodium Chloride (Flush - Normal Saline) 10 ml IVF Q12HR [facility] Last Admin: 03/22/18 08:57 Dose: Not Given Sodium Chloride (Flush - Normal Saline) 10 ml IVF PRN PRN PRN Reason: Saline Flush Last Admin: 03/20/18 11:45 Dose: 10 ml Throat Lozenges (Cepastat Lozenges) 1 gianni PO TIDPRN PRN PRN Reason: SORE THROAT
[2018-03-22] MEDS: Sodium Chloride 0.9% 1,000 ML IV SCH ×2 (13:20→15:08)
[2018-03-22] MEDS: HYDROcodone/Acetaminophen 5/325 mg Tablet PO PRN (13:20)
[2018-03-22 16:21] LABS: Bilirubin Negative (Negative); Blood, Urine Small (Negative); Clarity CLEAR (Clear); Glucose, Urine (Dipstick) Negative (Negative); Leukocyte Negative (Negative); Nitrite Negative (Negative); Protein, Urine (Dipstick) 30 mg/dL (Neg-Trace); Urobilinogen 0.2 mg/dL (0.2-1.0); pH, Urine 5.5 (5.0-9.0)
[2018-03-22 16:24] LABS: Bacteria/HPF None Seen HPF (None Seen); Hyaline Casts/LPF 0-3 HYALINE CAST LPF (0-3 Hyaline); Pathc Cast-AUWi Flag 0.29 (0-2.49); Squamous Epithelial None Seen HPF (0-3); WBC/HPF 0-3 HPF (0-3)
[2018-03-22 16:26] LABS: Yeast-AUWi Flag 40.5 (0-25.0)
[2018-03-22 16:35] LABS: Crystals/HPF RARE AMORPH URATES HPF (Negative)
[2018-03-22] MEDS ORDERED: predniSONE 20 MG TAB PO SCH (17:00)
--- NOTE | 2018-03-22 17:02 | PRG ---
DATE OF SERVICE: 03/22/2018 SERVICE: Pulmonary Medicine. INTERVAL HISTORY: The patient is doing fine from a respiratory standpoint. He is having a little bi t less discomfort today, but is still present, particularly whenever he coughs. He is not getting an y sleep because of the coughing fits that he is experiencing. Otherwise, there has been no interval change to his condition. PHYSICAL EXAMINATION: VITAL SIGNS: Afebrile, pulse 106, blood pressure 141/70, respirations 14, saturation 94% on room air . GENERAL: The patient is awake and alert, no apparent distress. LUNGS: Decent air entry. There is no prolonged expiratory phase or wheezing appreciated. Rhonchi a re present throughout left lung. HEART: Normal rate, regular. ABDOMEN: Soft, nontender, nondistended. Bowel sounds are positive. MUSCULOSKELETAL: No cyanosis or clubbing. There is 1+ pitting in the bilateral lower extremities. NEUROLOGIC: Grossly nonfocal. LABORATORY DATA: WBC 14.6, hemoglobin 9.6, platelets 369,000. Creatinine 3.68 and gently up trendin g, BUN 24. Basic metabolic profile is otherwise unremarkable. All culture results remain negative t o date. IMAGING DATA: Chest x-ray demonstrates stable pleural parenchymal changes in the left lung. There i s also a probable loculated apical effusion. ASSESSMENT: 1. Community-acquired pneumonia. 2. Complicated parapneumonic pleural effusion, status post decortication, postoperative day #3. 3. Obstructive sleep apnea, suspected. 4. Acute kidney injury, stabilizing. 5. Renal mass, requiring outpatient investigation. 6. Type 2 diabetes mellitus, DISCUSSION AND PLAN: We will continue our antibiotics. I will provide him with some p.r.n. Rina fo r the discomfort he experiences with his cough. We will give him one time dose of prednisone. I julieta l get a daily chest x-ray for the time being. If things get considerably worse, we may need to call surgeons back. Pulmonary or Critical Care will continue to follow along.
[2018-03-22] MEDS: Simvastatin 5 MG TAB PO SCH (21:06)
[2018-03-23] MEDS: Sodium Chloride 0.9% 1,000 ML IV SCH ×3 (01:22→20:35)
[2018-03-23] MEDS: Albumin 25% 25 GM/100 ML BOT IVPB SCH ×2 (02:34→10:16)
[2018-03-23 05:16] LABS: #Lymphocytes 0.8 thou/uL (1.20-3.40); #Monocytes 0.9 thou/uL (0.11-0.59); #Neutrophils 12.7 thou/uL (1.40-6.50); %Basophils 0.1 % (0.0-1.0); %Eosinophils 0.3 % (0.0-10.0); %Lymphocytes 5.6 % (21.0-51.0); %Monocytes 5.9 % (0.0-10.0); %Neutrophils 88.1 % (42.0-75.0); Hemoglobin 8.5 g/dL (14.0-18.0); Mean Corpuscular HGB CONC 33.1 g/dL (32.0-36.0); Mean Corpuscular Volume 78.4 fL (78.0-98.0); Mean Platelet Volume 6.2 fL (7.4-10.4); Platelet Count 365 thou/uL (130-400); RBC Distribution Width 14.3 % (11.5-14.5); Red Blood Cell (RBC) Count 3.28 mill/uL (4.70-6.10); White Blood Cell (WBC) Count 14.4 thou/uL (4.8-10.8)
[2018-03-23 05:34] LABS: Anion Gap 16 mmol/L (10-20); BUN (Urea Nitrogen) 23 mg/dL (8.9-20.6); Calc. Creatinine Clearance 57 mL/min (70-130); Calcium 8.9 mg/dL (7.8-10.44); Carbon Dioxide 18 mmol/L (22-29); Chloride 104 mmol/L (98-107); Estimated GFR-MDRD 19; Glucose 212 mg/dL (70-105); Potassium 4.6 mmol/L (3.5-5.1); Sodium 133 mmol/L (136-145)
[2018-03-23] MEDS: Pioglitazone HCl 15 MG TAB PO SCH (09:03)
[2018-03-23] MEDS: Amoxicillin/Potassium Clav 875 MG TAB PO SCH ×2 (09:03→20:35)
[2018-03-23] MEDS: Aspirin 81 mg Enteric Coated Tablet PO SCH (09:03)
[2018-03-23] MEDS: Docusate 100 MG CAP PO SCH ×2 (09:03→20:36)
[2018-03-23] MEDS: Saccharomyces boulardii 250 MG CAP PO SCH (09:04)
[2018-03-23] MEDS: Glimepiride 1 MG TAB PO SCH (09:17)
--- NOTE | 2018-03-23 13:22 | PRG ---
DATE OF SERVICE: 03/23/2018 SUBJECTIVE: Mr. Herrmann is a 47-year-old white male, who was admitted for pneumonia, complicated by empyema and parapneumonic pleural effusion. He underwent pulmonary decortication. Chest tube was pl aced and currently has been removed. We are following this patient. However, following up this samir ent for his acute kidney injury. He has been given colloid and crystalloid replacement. However, cr eatinine has not truly improved, but it has remained stable. The possibility of superimposed acute t ubular necrosis remains with this patient. During the initial workup, the patient was found to have a? of renal mass. Recommendation is to do a CT scan with contrast. However, due to the acute kidney injury, we are holding after further workup since it will need for the patient to receive contrast. He is aware about this finding on the ultrasound. I discussed this with the patient and his . 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 Thi s morning, he has no new complaints. He denies any chest pain or shortness of breath. OBJECTIVE: VITAL SIGNS: Blood pressure 122/61, heart rate 94, respiratory rate 20, temperature 98.5, pulse ox 9 9%. GENERAL: Noted to be awake, alert, comfortable, not in overt distress. SKIN: Adequate turgor. HEENT: He has slightly pale conjunctivae, no neck mass, no carotid bruits, no JVD. CHEST: No deformities. LUNGS: Clear breath sounds. HEART: Normal sinus rhythm. No murmur, no gallops, no rubs. ABDOMEN: Globular, soft, nontender. EXTREMITIES: No edema. Please note he still has decreased breath sounds on the left lung. MEDICATIONS: On 03/23/2018 was reviewed. LABORATORY DATA: On 03/23/2018 - white count 14.4, hemoglobin 8.5. Sodium 133, potassium 4.6, chlor getachew 104, carbon dioxide 18, BUN 23, creatinine 3.57, glucose 212, calcium 8.9. ASSESSMENT AND PLAN: 1. Acute kidney injury - consider the possibility of a superimposed acute tubular necrosis. Creatin ine of 3.57 is relatively unchanged. The creatinine yesterday was 3.68. My bias is to continue norm al saline as is since there may still be a possibility of a prerenal component with his renal dysfunc tion. Again, there is no indication for any dialytic intervention. 2. Pneumonia with pleural effusion/empyema - patient is status post pulmonary decortication, current ly now on p.o. antibiotics. Doing better. 3. Renal mass. The patient follow up as an outpatient with his primary care doctor and sludge mill operator.
--- NOTE | 2018-03-23 14:47 | PRG ---
DATE OF SERVICE: 03/23/2018 SUBJECTIVE: This morning, he is better, he is less short of breath. X-ray yesterday still showed so me pleural thickening. OBJECTIVE: VITAL SIGNS: Saturations are 90% on room air, temperature 98, blood pressure 138/79. CHEST: Decreased breath sounds without wheezing. CARDIAC: Normal S1, S2. ABDOMEN: Soft, no masses. LABORATORY DATA: Creatinine 3.57. White count 14,000. Cultures are negative. IMPRESSION: 1. Status post decortication and left-sided empyema. 2. Renal failure. PLAN: Pulmonary-abdullahi, continue oral antibiotics. DISPOSITION: As per Surgery.
[2018-03-23] MEDS: Acetaminophen 325 MG TAB PO PRN ×2 (16:31→23:35)
--- NOTE | 2018-03-23 17:18 | PDOC.PN ---
- Subjective Encounter Start Date: 03/23/18 Encounter Start Time: 17:16 patient seen and examined. NAD - Objective Resuscitation Status: Resuscitation Status FULL:Full Resuscitation Vital Signs & Weight: Vital Signs (12 hours) Temp Pulse Resp BP Pulse Ox 03/23/18 11:20 98.0 F 96 18 138/79 98 03/23/18 08:45 98.5 F 94 20 122/61 99 Weight Weight 344 lb 3.2 oz I&O: 03/22/18 03/23/18 03/24/18 06:59 06:59 06:59 Intake Total 1700 3450 Output Total 975 1400 Balance 725 2050 Result Diagrams: 03/23/18 04:59 03/23/18 04:59 Additional Labs: Accuchecks 03/23/18 03/23/18 03/23/18 16:52 10:39 05:11 POC Glucose 112 H 171 H 190 H 03/22/18 03/22/18 20:14 17:21 POC Glucose 180 H 112 H Phys Exam - Physical Examination Constitutional: NAD HEENT: PERRLA, moist MMs Neck: no JVD, supple Respiratory: no wheezing, no rales Cardiovascular: RRR, no significant murmur Gastrointestinal: soft, non-tender, no distention, positive bowel sounds Musculoskeletal: no edema, pulses present Neurological: moves all 4 limbs Psychiatric: normal affect, A&O x 3 Dx/Plan (1) Acute kidney failure Status: Acute Comment: 2/2 contrast induced nephropathy. Patient CTA w/ contrast caused patient elevated creatinine. Will continue nephrology's management. (2) Community acquired pneumonia Code(s): J18.9 - PNEUMONIA, UNSPECIFIED ORGANISM Status: Acute Comment: with parapneumonic effusions. s/p drainage. Follow up xray shows stable imaging compared to prior. (3) Renal mass Code(s): N28.89 - OTHER SPECIFIED DISORDERS OF KIDNEY AND URETER Status: Acute Comment: urology evaluated patient. Has given patient's family information regarding doing outpatient renal protocol after patient's contrast induced nephropathy resolves. (4) Empyema lung Code(s): J86.9 - PYOTHORAX WITHOUT FISTULA Status: Acute Comment: s/p left throacoscopy with total pulmonary decortication. s/p chest tube removal. Per PUlm will taper of antibiotics when xray improves. will follow with their plan. (5) Diabetes mellitus type 2 in obese Code(s): E11.69 - TYPE 2 DIABETES MELLITUS WITH OTHER SPECIFIED COMPLICATION; E66.9 - OBESITY, UNSPECIFIED Status: Acute Comment: continue current treatment. (6) Electrolyte abnormality Code(s): E87.8 - OTH DISORDERS OF ELECTROLYTE AND FLUID BALANCE, NEC Status: Acute Comment: resolved. will follow up morning labs. (7) Hypertension Code(s): I10 - ESSENTIAL (PRIMARY) HYPERTENSION Status: Chronic (8) S/P thoracostomy tube placement Code(s): Z93.8 - OTHER ARTIFICIAL OPENING STATUS Status: Acute Comment: chest tube removed by [facility]. - Plan cont current plan of care * . Review of Systems - Review of Systems Constitutional: negative: fever, chills, sweats, weakness, malaise, other Eyes: negative: Pain, Vision Change, Conjunctivae Inflammation, Eyelid Inflammation, Redness, Other ENT: negative: Ear Pain, Ear Discharge, Nose Pain, Nose Discharge, Nose Congestion, Mouth Pain, Mouth Swelling, Throat Pain, Throat Swelling, Other Respiratory: negative: Cough, Dry, Shortness of Breath, Hemoptysis, SOB with Excertion, Pleuritic Pain, Sputum, Wheezing Cardiovascular: negative: chest pain, palpitations, orthopnea, paroxysmal nocturnal dyspnea, edema, light headedness, other Gastrointestinal: negative: Nausea, Vomiting, Abdominal Pain, Diarrhea, Constipation, Melena, Hematochezia, Other Genitourinary: negative: Dysuria, Frequency, Incontinence, Hematuria, Retention , Other Musculoskeletal: negative: Neck Pain, Shoulder Pain, Arm Pain, Back Pain, Hand Pain, Leg Pain, Foot Pain, Other Skin: negative: Rash, Lesions, Shiva, Bruising, Other Neurological: negative: Weakness, Numbness, Incoordination, Change in Speech, Confusion, Seizures, Other - Medications/Allergies Allergies/Adverse Reactions: Allergies Allergy/AdvReac Type Severity Reaction Status Date / Time No Known Allergies Allergy Unverified 03/16/18 12:05 Medications: Current Medications Acetaminophen (Tylenol) 650 mg PO Q4H PRN PRN Reason: Headache/Fever or Pain Last Admin: 03/23/18 16:31 Dose: 650 mg Hydrocodone Bitart/Acetaminophen ([place] 5/325) 1 tab PO Q4H PRN PRN Reason: Moderate Pain (4-6) Last Admin: 03/22/18 13:20 Dose: 1 tab Hydrocodone Bitart/Acetaminophen ([place] 10/325) 1 tab PO Q4H PRN PRN Reason: Severe Pain (7-10) Last Admin: 03/22/18 17:33 Dose: 1 tab Amoxicillin/Clavulanate Potassium (Augmentin) 875 mg PO Q12HR [facility] Last Admin: 03/23/18 09:03 Dose: 875 mg Aspirin (Ecotrin) 81 mg PO DAILY [facility] Last Admin: 03/23/18 09:03 Dose: 81 mg Dextrose/Water (Dextrose 50%) 25 gm SLOW IVP PRN PRN PRN Reason: Hypoglycemia Docusate Sodium (Colace) 100 mg PO BID [facility] Last Admin: 03/23/18 09:03 Dose: 100 mg Fentanyl (Sublimaze) 25 mcg SLOW IVP Q2H PRN PRN Reason: Pain Last Admin: 03/19/18 16:45 Dose: 25 mcg Glimepiride (Amaryl) 1 mg PO QAM[facility] Last Admin: 03/23/18 09:17 Dose: 1 mg Glucagon (Glucagon) 1 mg IM PRN PRN PRN Reason: Hypoglycemia Hydralazine HCl (Apresoline) 10 mg SLOW IVP Q4H PRN PRN Reason: SBP Greater Than 180 Dextrose/Water (D5w) 1,000 mls @ 0 mls/hr IV .Q0M PRN PRN Reason: Hypoglycemia Sodium Chloride (Normal Saline 0.9%) 1,000 mls @ 100 mls/hr IV .Q10H [facility] Last Admin: 03/23/18 11:22 Dose: 1,000 mls Insulin Human Regular (Humulin R) 0 units SC .MILD SLIDING SCALE PRN PRN Reason: Mild Correctional Scale Last Admin: 03/18/18 11:32 Dose: 4 unit Miscellaneous Medication (Pharmacy To Dose) 1 each IVPB PRN PRN PRN Reason: Pharmacy to dose Nitroglycerin (Nitrostat) 0.4 mg PO Q5MIN PRN PRN Reason: Chest Pain Ondansetron HCl (Zofran Odt) 4 mg PO Q6H PRN PRN Reason: Nausea/Vomiting Ondansetron HCl (Zofran) 4 mg IVP Q6H PRN PRN Reason: Nausea/Vomiting Last Admin: 03/19/18 08:09 Dose: 4 mg Pantoprazole Sodium (Protonix) 40 mg PO DAILY [facility] Last Admin: 03/23/18 09:04 Dose: 40 mg Phenol (Chloraseptic [place] 180 Ml Bot) 0 ml PO TIDPRN PRN PRN Reason: SORE THROAT Last Admin: 03/21/18 02:40 Dose: 2 spr Pioglitazone HCl (Actos) 15 mg PO DAILY [facility] Last Admin: 03/23/18 09:03 Dose: 15 mg Saccharomyces Boulardii (Florastor) 250 mg PO DAILY [facility] Last Admin: 03/23/18 09:04 Dose: 250 mg Senna (Senokot) 2 tab PO HSPRN PRN PRN Reason: Constipation Simvastatin (Zocor) 10 mg PO HS [facility] Last Admin: 03/22/18 21:06 Dose: 10 mg Sodium Chloride (Flush - Normal Saline) 10 ml IVF Q12HR [facility] Last Admin: 03/23/18 10:16 Dose: Not Given Sodium Chloride (Flush - Normal Saline) 10 ml IVF PRN PRN PRN Reason: Saline Flush Last Admin: 03/20/18 11:45 Dose: 10 ml Throat Lozenges (Cepastat Lozenges) 1 gianni PO TIDPRN PRN PRN Reason: SORE THROAT
[2018-03-23] MEDS: Simvastatin 5 MG TAB PO SCH (20:36)
[2018-03-23] MEDS: HYDROcodone/Acetaminophen 10/325 mg Tablet PO PRN (20:36)
[2018-03-24] MEDS: Sodium Chloride 0.9% 1,000 ML IV SCH ×2 (06:31→09:46)
[2018-03-24] MEDS ORDERED: AUGMENTIN PO SCH (09:00)
[2018-03-24] MEDS: Amoxicillin/Potassium Clav 500 MG TAB PO SCH ×2 (09:46→20:07)
[2018-03-24] MEDS: Aspirin 81 mg Enteric Coated Tablet PO SCH (09:47)
[2018-03-24] MEDS: Saccharomyces boulardii 250 MG CAP PO SCH (09:47)
[2018-03-24] MEDS: Pioglitazone HCl 15 MG TAB PO SCH (09:47)
[2018-03-24] MEDS: Docusate 100 MG CAP PO SCH ×2 (09:47→20:05)
[2018-03-24 09:57] LABS: #Eosinphils 0.4 thou/uL (0.0-0.7); #Monocytes 1.2 thou/uL (0.11-0.59); #Neutrophils 12.1 thou/uL (1.40-6.50); %Basophils 0.3 % (0.0-1.0); %Eosinophils 2.9 % (0.0-10.0); %Lymphocytes 6.4 % (21.0-51.0); %Monocytes 8.1 % (0.0-10.0); %Neutrophils 82.3 % (42.0-75.0); Hemoglobin 8.7 g/dL (14.0-18.0); Mean Corpuscular HGB CONC 32.2 g/dL (32.0-36.0); Mean Corpuscular Hemoglobin 25.5 pg (27.0-31.0); Mean Platelet Volume 6.3 fL (7.4-10.4); Platelet Count 462 thou/uL (130-400); RBC Distribution Width 14.8 % (11.5-14.5); Red Blood Cell (RBC) Count 3.41 mill/uL (4.70-6.10); White Blood Cell (WBC) Count 14.7 thou/uL (4.8-10.8)
[2018-03-24 10:12] LABS: Anion Gap 14 mmol/L (10-20); BUN (Urea Nitrogen) 23 mg/dL (8.9-20.6); Calc. Creatinine Clearance 61 mL/min (70-130); Calcium 8.7 mg/dL (7.8-10.44); Carbon Dioxide 20 mmol/L (22-29); Chloride 107 mmol/L (98-107); Estimated GFR-MDRD 20; Glucose 122 mg/dL (70-105); Potassium 4.6 mmol/L (3.5-5.1); Sodium 136 mmol/L (136-145)
--- NOTE | 2018-03-24 11:22 | RAD ---
PA AND LATERAL VIEWS CHEST: HISTORY: Pneumonia. FINDINGS: Comparison is made with the exam of 03/22/18. No significant interval change is seen. POS: [facility]
[2018-03-24] MEDS: Glimepiride 1 MG TAB PO SCH (12:19)
--- NOTE | 2018-03-24 12:23 | PRG ---
DATE OF SERVICE: 03/24/2018 SUBJECTIVE: Mr. Herrmann is a 47-year-old white male who was initially admitted for pneumonia complic ated with empyema and underwent pulmonary decortication as well as chest tube placement. Doing well overall. He is currently on p.o. antibiotics. He saw this patient for his acute kidney injury. Michel pite of volume repletion, his renal function did not normalize. I suspect he may have some degree of acute tubular necrosis. Over the last 3 days, his renal function is plateauing and actually slightl y improved with the most recent creatinine at 3.41. He voices no new complaints except of a feeling of bloatedness. OBJECTIVE: VITAL SIGNS: Blood pressure is 162/76, heart rate 96, respiratory rate 18, temperature 98, pulse ox 97%. GENERAL: Awake, alert, comfortable, not in distress. SKIN: Adequate turgor. HEENT: He has pinkish conjunctivae, anicteric sclerae. NECK: No neck mass, no carotid bruits, no JVD. CHEST: No deformities. LUNGS: Decreased breath sounds. HEART: Normal sinus rhythm. No murmur, no gallops or rubs. ABDOMEN: Globular, soft, nontender. No masses. EXTREMITIES: No edema, no deformities. MEDICATIONS: Of 03/24/2018 was reviewed. LABORATORY DATA: 03/24/2018, sodium 136, potassium 4.6, chloride 107, carbon dioxide 20, BUN 23, cre atinine 3.41, glucose 122, calcium 8.7, magnesium 2.0. ASSESSMENT AND PLAN: 1. Acute kidney injury - most likely a superimposed acute tubular necrosis. Renal function remains stable. There is no indication for any dialytic intervention. Continue current management. Please note creatinine is 3.41, which is slightly improved from the other day where it was 3.68. I will be rechecking another base met tomorrow. 2. Pneumonia with parapneumonic effusion/empyema - status post pulmonary decortication -- on p.o. an tibiotics. Doing well. Overall, agree with current management. I did discuss about this renal spot that the patient had. We instructed to follow up with his nephro logist back in [place].
--- NOTE | 2018-03-24 12:24 | PRG ---
DATE OF SERVICE: 03/24/2018 SUBJECTIVE: This morning, he is eating well. No pain, no shortness of breath. OBJECTIVE: VITAL SIGNS: Temperature is 98%, sats , blood pressure is 162/76. CHEST: Decreased breath sounds, no wheezing. CARDIAC: Normal S1 and S2. No gallops. ABDOMEN: Soft, no masses. LABORATORY DATA: Creatinine 3.4. ASSESSMENT: Status post decortication empyema. PLAN: He is on oral antibiotics. There is a concern about persistent loculated pleural effusion. [facility] chest x-ray is being ordered. Otherwise, PT and supportive care.
[2018-03-24] MEDS: Simvastatin 5 MG TAB PO SCH (20:05)
[2018-03-24] MEDS: HYDROcodone/Acetaminophen 10/325 mg Tablet PO PRN (20:07)
--- NOTE | 2018-03-24 21:36 | PDOC.PN ---
- Subjective Encounter Start Date: 03/24/18 Encounter Start Time: 13:00 Patient seen and examined for Sepsis. No new complaints. Feels gen weak. No overnight events - Objective Resuscitation Status: Resuscitation Status FULL:Full Resuscitation MAR Reviewed: Yes Vital Signs & Weight: Vital Signs (12 hours) Temp Pulse Resp BP BP Pulse Ox 03/24/18 16:37 98.2 F 97 16 149/78 H 93 L 03/24/18 11:54 98.9 F 94 16 133/68 94 L Weight Weight 350 lb 14.4 oz I&O: 03/23/18 03/24/18 03/25/18 06:59 06:59 06:59 Intake Total 3450 2130 Output Total 1400 2074 Balance 2049 55 Result Diagrams: 03/24/18 09:46 03/24/18 09:46 Additional Labs: Accuchecks 03/24/18 03/24/18 03/24/18 20:49 16:51 10:41 POC Glucose 159 H 126 H 145 H 03/24/18 05:50 POC Glucose 112 H Radiology Reviewed by me: Yes (CXR - No new changes) EKG Reviewed by me: Yes (Tele SR) Phys Exam - Physical Examination Constitutional: NAD Respiratory: no wheezing, no rhonchi Dec AE at Left base Cardiovascular: RRR, no rub Gastrointestinal: soft, non-tender, positive bowel sounds Musculoskeletal: no edema Dx/Plan - Plan DVT proph w/SCDs IMPRESSION: 1. Sepsis for Pneumonia ?Pneumococcus with Parapneumonic effusion/Empyema s/p thoracentesis and decortication 2. Pleuritic chest pain - trop neg, Echo - normal EF 2. LINDA - prob due to ATN 3. Hypertension. 4. Hyperlipidemia. 5. Diabetes mellitus type 2 on Glimepiride and sliding scale 6. Chronic kidney disease stage 2. 7. Thrombocytosis, probably secondary to #1. 8. Anemia, probably chronic/Hypomagnesemia. - replaced PLAN: Cont Augmentin - dose adjusted for renal function Dec NS to 75 ml/hr Cont current meds as below AM labs Review of Systems - Review of Systems Respiratory: Cough. negative: Dry, Shortness of Breath, Hemoptysis, SOB with Excertion, Pleuritic Pain, Sputum, Wheezing Cardiovascular: negative: chest pain, palpitations, orthopnea, paroxysmal nocturnal dyspnea, edema, light headedness, other - Medications/Allergies Allergies/Adverse Reactions: Allergies Allergy/AdvReac Type Severity Reaction Status Date / Time No Known Allergies Allergy Unverified 03/16/18 12:05 Medications: Current Medications Acetaminophen (Tylenol) 650 mg PO Q4H PRN PRN Reason: Headache/Fever or Pain Last Admin: 03/23/18 23:35 Dose: 650 mg Hydrocodone Bitart/Acetaminophen (Addy 5/325) 1 tab PO Q4H PRN PRN Reason: Moderate Pain (4-6) Last Admin: 03/22/18 13:20 Dose: 1 tab Hydrocodone Bitart/Acetaminophen (Addy 10/325) 1 tab PO Q4H PRN PRN Reason: Severe Pain (7-10) Last Admin: 03/24/18 20:07 Dose: 1 tab Amoxicillin/Clavulanate Potassium (Augmentin) 500 mg PO BID [facility] Last Admin: 03/24/18 20:07 Dose: 500 mg Aspirin (Ecotrin) 81 mg PO DAILY [facility] Last Admin: 03/24/18 09:47 Dose: 81 mg Dextrose/Water (Dextrose 50%) 25 gm SLOW IVP PRN PRN PRN Reason: Hypoglycemia Docusate Sodium (Colace) 100 mg PO BID [facility] Last Admin: 03/24/18 20:05 Dose: 100 mg Fentanyl (Sublimaze) 25 mcg SLOW IVP Q2H PRN PRN Reason: Pain Last Admin: 03/19/18 16:45 Dose: 25 mcg Glimepiride (Amaryl) 1 mg PO QA-[facility] Last Admin: 03/24/18 12:19 Dose: Not Given Glucagon (Glucagon) 1 mg IM PRN PRN PRN Reason: Hypoglycemia Hydralazine HCl (Apresoline) 10 mg SLOW IVP Q4H PRN PRN Reason: SBP Greater Than 180 Dextrose/Water (D5w) 1,000 mls @ 0 mls/hr IV .Q0M PRN PRN Reason: Hypoglycemia Sodium Chloride (Normal Saline 0.9%) 1,000 mls @ 100 mls/hr IV .Q10H [facility] Last Admin: 03/24/18 09:46 Dose: 1,000 mls Insulin Human Regular (Humulin R) 0 units SC .MILD SLIDING SCALE PRN PRN Reason: Mild Correctional Scale Last Admin: 03/18/18 11:32 Dose: 4 unit Miscellaneous Medication (Pharmacy To Dose) 1 each IVPB PRN PRN PRN Reason: Pharmacy to dose Miscellaneous Medication (Pharmacy To Dose) 1 each PO .[facility]IN [facility] Nitroglycerin (Nitrostat) 0.4 mg PO Q5MIN PRN PRN Reason: Chest Pain Ondansetron HCl (Zofran Odt) 4 mg PO Q6H PRN PRN Reason: Nausea/Vomiting Ondansetron HCl (Zofran) 4 mg IVP Q6H PRN PRN Reason: Nausea/Vomiting Last Admin: 03/19/18 08:09 Dose: 4 mg Pantoprazole Sodium (Protonix) 40 mg PO DAILY [facility] Last Admin: 03/24/18 09:47 Dose: 40 mg Phenol (Chloraseptic Pe Ell 180 Ml Bot) 0 ml PO TIDPRN PRN PRN Reason: SORE THROAT Last Admin: 03/21/18 02:40 Dose: 2 spr Pioglitazone HCl (Actos) 15 mg PO DAILY [facility] Last Admin: 03/24/18 09:47 Dose: 15 mg Saccharomyces Boulardii (Florastor) 250 mg PO DAILY [facility] Last Admin: 03/24/18 09:47 Dose: 250 mg Senna (Senokot) 2 tab PO HSPRN PRN PRN Reason: Constipation Simvastatin (Zocor) 10 mg PO HS [facility] Last Admin: 03/24/18 20:05 Dose: 10 mg Sodium Chloride (Flush - Normal Saline) 10 ml IVF Q12HR [facility] Last Admin: 03/24/18 20:07 Dose: Not Given Sodium Chloride (Flush - Normal Saline) 10 ml IVF PRN PRN PRN Reason: Saline Flush Last Admin: 03/20/18 11:45 Dose: 10 ml Throat Lozenges (Cepastat Lozenges) 1 gianni PO TIDPRN PRN PRN Reason: SORE THROAT Last Admin: 03/23/18 18:41 Dose: 1 gianni
[2018-03-25] MEDS: Sodium Chloride 0.9% 1,000 ML IV SCH ×2 (00:25→14:58)
[2018-03-25] MEDS: HYDROcodone/Acetaminophen 10/325 mg Tablet PO PRN (04:09)
[2018-03-25 05:37] LABS: Anion Gap 12 mmol/L (10-20); BUN (Urea Nitrogen) 23 mg/dL (8.9-20.6); Calc. Creatinine Clearance 64 mL/min (70-130); Calcium 8.5 mg/dL (7.8-10.44); Carbon Dioxide 19 mmol/L (22-29); Chloride 109 mmol/L (98-107); Estimated GFR-MDRD 20; Glucose 155 mg/dL (70-105); Magnesium 1.9 mg/dL (1.6-2.6); Potassium 4.1 mmol/L (3.5-5.1); Sodium 136 mmol/L (136-145)
--- NOTE | 2018-03-25 08:51 | PRG ---
DATE OF SERVICE: 03/25/2018 SUBJECTIVE: Mr. Herrmann is a 47-year-old white male who was admitted for pneumonia with development of pleural effusion and ? of empyema - underwent pulmonary decortication and being seen by Renal Serv ice for his acute kidney injury. We initially empirically volume repleted him, but the renal functio n never went to baseline normal. He most likely has superimposed acute tubular necrosis. However, i n the last several days, the renal function established and is now slowly improving. No other compla ints today. He denies any chest pain or shortness of breath. PHYSICAL EXAMINATION: VITAL SIGNS: Blood pressure is 163/80, heart rate 94, respiratory rate 18, temperature 97.9, pulse o x 98%. GENERAL: Noted to be awake, alert, comfortable, not in distress. SKIN: Adequate turgor. HEENT: He has slightly pale conjunctivae, anicteric sclerae. NECK: No neck mass, no carotid bruits, no JVD. CHEST: No deformities. LUNGS: Decreased breath sounds, no wheezing, no crackles. HEART: Normal sinus rhythm. No murmur, no gallops or rubs. ABDOMEN: Globular, soft, nontender, no masses. EXTREMITIES: No edema, no deformities. MEDICATIONS: 03/25/2018 - Reviewed. LABORATORY: Sodium 136, potassium 4.1, chloride 109, carbon dioxide 19, BUN 23, creatinine 3.27, glu cose 155, calcium 8.5, magnesium 1.9. ASSESSMENT AND PLAN: 1. Acute kidney injury - most likely a superimposed acute tubular necrosis. Slowly improving renal function. Creatinine is noted at 3.27 today. There is no indication for any dialytic intervention. Continue current management. 2. Status post pneumonia with the complication of pleural effusion/status post-pulmonary decorticati on - doing well. Pulmonary is following. Currently on oral antibiotics. 3. Finding of solid isoechoic mass - ? normal parenchyma versus solid mass. RECOMMENDATION: To do our protocol CT scan. 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
[2018-03-25] MEDS: Pioglitazone HCl 15 MG TAB PO SCH (08:58)
[2018-03-25] MEDS: Amoxicillin/Potassium Clav 500 MG TAB PO SCH (08:58)
[2018-03-25] MEDS: Saccharomyces boulardii 250 MG CAP PO SCH (08:58)
[2018-03-25] MEDS: Docusate 100 MG CAP PO SCH (08:58)
[2018-03-25] MEDS: Aspirin 81 mg Enteric Coated Tablet PO SCH (08:58)
[2018-03-25] MEDS: Glimepiride 1 MG TAB PO SCH (11:00)
--- NOTE | 2018-03-25 11:42 | RAD ---
TWO VIEW CHEST SERIES: COMPARISON: 03/24/18. INDICATION: Pleural effusion, infiltrate, followup. FINDINGS: There is persistent abnormal loculated density at the left superior hemithorax in addition to moderat e volume pleural fluid at the inferior and lateral aspect of the left hemithorax. There is patchy le ft perihilar opacity which is slightly progressive. The right lung is grossly stable with eventratio n of medial right hemidiaphragm. Cardiac silhouette and pulmonary vasculature remain prominent. IMPRESSION: 1. Persistent abnormal pleural-based density of the left chest with a component of loculated-appeari ng nondependent left apical opacity. 2. Progressive left patchy perihilar opacity could reflect interval increase of pneumonia in the cor rect clinical context. Continued imaging followup is warranted. POS: YAZMIN
[2018-03-25] MEDS ORDERED: Amoxicillin/Potassium Clav 500 MG TAB PO SCH (16:45)
[2018-03-25 17:00] VITALS: BP 142/73; TEMP 98.2
--- NOTE | 2018-03-25 21:28 | DIS ---
DATE OF DISCHARGE: 03/25/2018 DISCHARGE DISPOSITION: Home. FOLLOWUP: Follow up with primary care physician in [place], Dr. Shahab Giles, phone number is [phone]. DISCHARGE MEDICATIONS: 1. Augmentin 500 mg twice a day for 4 weeks. 2. Actos 15 mg daily. 3. Tylenol No. 3 as needed. 4. Nexium 40 mg daily. 5. Glimepiride 1 mg daily. 6. Lovastatin 20 mg at bedtime. 7. Amlodipine 5 mg daily. INPATIENT CONSULTANTS: 1. Pulmonary, Dr. Pearce 1. Cardiovascular, Dr. Donato. BRIEF HOSPITAL COURSE: The patient is a 47-year-old male with diabetes mellitus, type 2; hypertensio n; and hyperlipidemia; presented to the hospital with chest discomfort. Please refer to the history and physical for further details. The patient was admitted to the telemetry unit with a diagnosis of chest discomfort along with pneumo robby. A CT scan of the chest on admission showed cavitating lesion in the left lower lobe with small left-sided pleural effusion. Next morning, his x-ray showed worsening of the fluid. A thoracentesis was performed by Dr. Pearce on 03/17/2018. He was started on broad spectrum antibiotics on admissi on. His cultures were negative. Due to reaccumulation of the pleural fluid, he underwent decorticat ion by Dr. Chavez Donato on 03/19/2018. The chest tubes were later discontinued. He will continue A ugmentin for 4 weeks. For chest discomfort, he underwent an echocardiogram that showed ejection fraction 50% to 55%. There was also mild tricuspid regurgitation. His troponins were negative. The patient also developed renal failure with a maximum creatinine of 3.68. His creatinine on the da y of discharge is 3.27. Renal ultrasound was negative for obstructive uropathy. He was seen by neph rologist. The patient requires a followup with Pulmonary and Nephrology. He would also require a basic metabol ic profile later this week. He has been cleared by consultants for discharge. FINAL DIAGNOSES: 1. Sepsis with acute organ dysfunction secondary to pneumonia with parapneumonic effusion/empyema, s tatus post thoracentesis and decortication. 2. Pleuritic chest pain secondary to #1. Echocardiogram showed normal ejection fraction. Troponins were negative. 3. Acute kidney injury, probably secondary to acute tubular necrosis. Contrast induced nephropathy is also a possibility. 4. Hypertension. 5. Hyperlipidemia. 6. Diabetes mellitus, type 2. 7. Chronic kidney disease, stage 2. 8. Reactive thrombocytosis. 9. Chronic anemia. 10. Hypomagnesemia. 11. Obesity with a BMI of 43.2. 12. Chronic anemia. SIGNIFICANT LABORATORY DATA: 1. Urine for Strep pneumonia and legionella was negative. 2. Pleural fluid from thoracentesis showed WBC of 16,400 with 30,000 RBCs. LDH of 924, glucose of 1 17. 3. Blood cultures negative. Pleural fluid cultures negative. Acid fast smear is negative. Culture s are pending. Plan of care was discussed with the patient and the family in detail. They stated understanding.
--- NOTE | 2018-03-26 00:28 | PRG ---
DATE OF SERVICE: 03/25/2018 SERVICE: Pulmonary Medicine. INTERVAL HISTORY: The patient is doing fine from a respiratory standpoint. He actually coughed up a plug of . After he did that, his breathing opened up dramatically. He denies any current feve rs or chills. There were no overnight events. He has not been having any night sweats. He is much more comfortable with his breathing. When he gets up and walks around, he is not having the horrendo us pleuritic chest discomfort . Overall, he feels that over the weekend, he turns the corner. PHYSICAL EXAMINATION: VITAL SIGNS: Afebrile, pulse 84, blood pressure 163/80, respirations 18, saturation 98% on room air. GENERAL: The patient is awake and alert, in no apparent distress. LUNGS: Decent air entry. There are crackles present which are predominantly displayed in the left l ower lobe. No crackles on the right. There is no prolonged expiratory phase or wheezing appreciated . HEART: Normal rate, regular. ABDOMEN: Soft, nontender, nondistended. Bowel sounds are positive. MUSCULOSKELETAL: No cyanosis or clubbing. There is trace pitting in the bilateral lower extremities . NEUROLOGIC: Grossly nonfocal. LABORATORY DATA: WBC 14.7, hemoglobin 8.7, platelets 462,000. Creatinine 3.27 and gently down trend ing over the past 4 days. Basic metabolic profile is otherwise unremarkable with a normal magnesium. All culture results remain negative to date. IMAGING: Chest x-ray demonstrates left-sided pleural parenchymal opacification. There is also an ar ea of loculated apical effusion. ASSESSMENT: 1. Community-acquired pneumonia. 2. Complicated parapneumonic pleural effusion, status post decortication, postoperative day #6. 3. Obstructive sleep apnea, suspected. 4. Type 2 diabetes mellitus. 5. Acute kidney injury. 6. Possible renal mass. DISCUSSION AND PLAN: The patient will require a 4-week course of Augmentin moving forward. He will need a chest x-ray in 2 weeks and a repeat chest x-ray in 6 weeks. I have cautioned the patient and his at bedside today that there is a possibility that this thing will require additional surgica l interventions and possibly bronchoscopies in the future. Our presumption is that we are treating a severe community-acquired pneumonia. He has responded to therapy. The chest x-ray is stable throug h the weekend and has not shown significant signs of deterioration. As such, we are going to have th e patient transition home provided that he has a very close followup with his primary care physician. He will require a repeat chest x-ray in 2 weeks and in 6 weeks. If there is not interval clearing of the chest x-ray, pulmonary consultation will be indicated for consideration of repeat CT scan, bro nchoscopy, and additional procedures. If at any point along the way, the patient has fever, increasi ng cough with sputum production, increasing pain, night sweats, increasing myalgia, malaise, or anore mandeep, he will seek help sooner than later. I have discussed these features with him at bedside presen tljustin. Augmentin has been adjusted for the patient's kidney injury. Hopefully, this will continue to clear through time. Provided that we have a close followup, I think it is reasonable to transition t he patient home today. I discussed this plan with Dr. Chavez Donato. He agrees that at this time, i t would not be abdullahi to go back into his chest base.
== END 2018-03-25 18:44 | disposition home or self-care (01) | DRG 853 ==
LOC: ERS 07:57 → ERHOLD 09:54 → OBSVTOIN 11:31 → 2NO 13:46
PROVIDERS: ADMIT Internal Medicine; ATTEND Internal Medicine
PROC: 0W9B3ZX Drainage of Left Pleural Cavity, Percutaneous Approach, Diagnostic (ICD-10-PCS; 2018-03-17)
PROC: 0BCL4ZZ Extirpation of Matter from Left Lung, Percutaneous Endoscopic Approach (ICD-10-PCS; principal; 2018-03-19)
DX: A41.9 Sepsis, unspecified organism (principal); J86.9 Pyothorax without fistula; J18.9 Pneumonia, unspecified organism; Z68.41 Body mass index [BMI] 40.0-44.9, adult; J90 Pleural effusion, not elsewhere classified; N17.9 Acute kidney failure, unspecified; E78.5 Hyperlipidemia, unspecified; E66.9 Obesity, unspecified; Z79.84 Long term (current) use of oral hypoglycemic drugs; Z83.3 Family history of diabetes mellitus; E11.22 Type 2 diabetes mellitus with diabetic chronic kidney disease; I12.9 Hypertensive chronic kidney disease with stage 1 through stage 4 chronic kidney disease, or unspecified chronic kidney disease; N18.2 Chronic kidney disease, stage 2 (mild); D47.3 Essential (hemorrhagic) thrombocythemia; D64.9 Anemia, unspecified; E83.42 Hypomagnesemia; N28.89 Other specified disorders of kidney and ureter; G47.33 Obstructive sleep apnea (adult) (pediatric)
CPT/HCPCS: 32554; 36415; 36416; 71045; 71046; 71250; 71275; 76770; 80048; 80053; 80061; 80202; 81001; 82553; 82570; 82945; 83605; 83615; 83690; 83735; 84157; 84300; 84484; 85025; 85060; 86140; 86850; 86900; 86901; 87040; 87070; 87081; 87116; 87205; 87206; 87430; 87899; 88112; 88305; 89051; 93005; 93306; 94760; 96365; 96367; 96375; A4216; J0360; J0456; J0670; J0696; J1642; J1815; J1885; J1956; J2001; J2185; J2250; J2270; J2405; J2543; J2704; J3010; J3370; J3475; J7050; J7506; P9047